=== PATIENT | female | born 1945 | race Caucasian/White ===

== ENCOUNTER → 2018-02-21 07:46 | Outpatient (BNVA) | payer MEDICARE, OTHER, SELFPAY | PROVIDERS: PCP Family Medicine; Referring Provider Family Medicine; Visit Provider Student in an Organized Health Care Education/Training Program | DX: Z47.1 Aftercare following joint replacement surgery (principal); Z96.651 Presence of right artificial knee joint | CPT/HCPCS: 99213 ==

== ENCOUNTER 2018-02-21 12:44 | Outpatient (CLI) | payer MEDICARE, OTHER, SELFPAY ==
--- NOTE | 2018-02-21 08:11 | DI.RAD_ITS ---
SYMPTOM/DIAGNOSIS: S/P RT ANDRE RIGHT HIP: Three views were obtained and show total hip joint replacement in position on the right. The components appear well seated. There are moderate degenerative changes of the left hip noted.
== END 2018-02-21 13:04 ==
PROVIDERS: PCP Family Medicine; Visit Provider Student in an Organized Health Care Education/Training Program
DX: Z96.641 Presence of right artificial hip joint (principal); Z47.1 Aftercare following joint replacement surgery
CPT/HCPCS: 99213; 73502

== ENCOUNTER 2018-05-28 11:47 | Outpatient (CLI) | payer MEDICARE, OTHER, SELFPAY ==
[2018-05-28 14:03] LABS: FREE T4 1.12 ng/dL (0.76-1.46); TSH 1.74 uIU/mL (0.358-3.74)
[2018-05-28 22:34] LABS: T3, Total 119 ng/dl (97-169)
== END 2018-05-28 12:07 ==
PROVIDERS: PCP Family Medicine; Visit Provider Family Medicine
DX: R53.83 Other fatigue (principal); R03.0 Elevated blood-pressure reading, without diagnosis of hypertension; F32.89 Other specified depressive episodes
CPT/HCPCS: 36415; 84439; 84443; 84480

== ENCOUNTER 2018-08-16 10:43 | Outpatient (CLI) | payer MEDICARE, OTHER, SELFPAY ==
[2018-08-16 12:45] LABS: Abs Immature Grans 0.02 k/cumm (0.0-0.09); Absolute Basophil Count 0.03 k/cumm (0.0-0.2); Absolute Eosinophil Count 0.18 k/cumm (0.0-0.7); Absolute Lymphocyte Count 1.73 k/cumm (1.2-3.4); Absolute Monocyte Count 0.59 k/cumm (0.11-0.7); Absolute Neutrophil Count 3.92 k/cumm (1.2-6.7); Basophils % 0.5; Eosinophils % 2.8; HCT 42.8 % (36.0-46.0); HGB 14.5 g/dL (12.0-15.5); Immature Grans % 0.3; Lymphocytes % 26.7; Mean Corp. HGB Concentration 33.9 g/dL (32.0-36.0); Mean Corpuscular Hemoglobin 31.4 pg (27.0-33.0); Mean Corpuscular Volume 92.6 fL (80-95); Mean Platelet Volume 10.1 fL (8.0-11.0); Monocytes % 9.1; Neutrophils % 60.6; Platelet Count 247 x1000/uL (130-400); RBC 4.62 m/cumm (4.00-5.20); RBC Distribution Width 12.7 % (11.7-14.6); White Blood Cell Count 6.47 k/cumm (4.4-10.8)
[2018-08-16 13:06] LABS: Iron 93 ug/dL (50-175); Total Iron Binding Capacity 333 ug/dL (250-450); Transferrin Sat 28 % (15-50)
[2018-08-16 13:40] LABS: ALT 28 U/L (12-78); AST 20 U/L (15-37); Albumin 3.9 g/dL (3.4-5.0); Alkaline Phosphatase 101 U/L (46-116); Anion Gap 11.3 mmol/L (3-11); BUN 21 mg/dL (7-18); Bilirubin, Total 0.8 mg/dL (0.2-1.0); CO2 26.7 mmol/L (21.0-32.0); CREATININE 0.83 mg/dL (0.55-1.02); Calcium 9.9 mg/dL (8.5-10.1); Chloride 105 mmol/L (98-107); Ferritin 79 ng/mL (8-388); Glucose 92 mg/dL (70-100); Potassium 4.1 mmol/L (3.5-5.1); Sodium 143 mmol/L (136-145); Total Protein 7.4 g/dL (6.4-8.2); Vitamin B12 620 pg/mL (193-986)
[2018-08-16 14:13] LABS: Amylase 98 U/L (25-115); Lipase 102 U/L (73-393)
== END 2018-08-16 11:03 ==
PROVIDERS: PCP Family Medicine; Visit Provider Family Medicine
DX: R07.9 Chest pain, unspecified (principal); D64.9 Anemia, unspecified; R10.9 Unspecified abdominal pain
CPT/HCPCS: 36415; 80053; 83690; 82150; 82607; 82728; 83540; 83550; 85025

== ENCOUNTER → 2018-09-07 09:13 | Outpatient (BNVA) | payer MEDICARE, OTHER, SELFPAY | PROVIDERS: PCP Family Medicine; Referring Provider Family Medicine; Visit Provider Student in an Organized Health Care Education/Training Program | DX: M65.312 Trigger thumb, left thumb (principal); M65.331 Trigger finger, right middle finger | CPT/HCPCS: 99212; 99213 ==

== ENCOUNTER 2018-09-11 11:47 | Day surgery (SDC) | payer MEDICARE, OTHER, SELFPAY ==
[2018-09-11 12:15] VITALS: BP 142/70; PULSE 71; RESP 16; TEMP 36.2; O2SAT 97
[2018-09-11] MEDS: Lidocaine 1% Pres-Free 5 ML VIAL (14:14)
[2018-09-11] MEDS: Sodium Bicarbonate 50 MEQ/50 ML VIAL (14:14)
[2018-09-11] MEDS: Bupivacaine 0.5% Pres-Free 30 ML VIAL (14:20)
--- NOTE | 2018-09-11 14:27 | W.PM.DSUDISC ---
Discharge Plan Disposition Patient Disposition: HOME Condition: Good Discharge Details Reason For Visit: TRIGGER FINGER Attending Provider: Jack Morales Primary Care Provider: Harmony Gallardo Home Meds and New Rx's Prescriptions: New acetaminophen 500 mg tablet 1,000 mg PO Q8H PRN (Reason: pain) Qty: 60 RF: 3 ibuprofen 600 mg tablet 600 mg PO TID PRNQty: 60 RF: 3 Continued mirtazapine 15 mg tablet 7.5 mg PO DAILY PRN (Reason: depression/insomnia) RF: 0 omeprazole 20 mg capsule,delayed release(DR/EC) 20 mg PO DAILY Qty: 30 RF: 3 Discharge Instructions Stand Alone Forms: Andrew Brewer Finger Release Referrals: Jack Morales MD [ [facility] STAFF PHYSICIAN] - Activity:: Elevate Remove Dressings/Wound Care:: 48 hours Shower/Bathe:: 48 hours Diet:: As Tolerated Discharge Orders Discharge Orders: Discharge Order (Routine); Ordered 09/11/18 Ordered By: Jack Morales DS: Diagnosis Discharge Diagnosis (1) Trigger thumb, left thumb: Status: Acute (2) Trigger finger, left middle finger: Status: Acute
--- NOTE | 2018-09-12 08:09 | ROE_ITS ---
Date of service: 09/11/18 Time of Service: 15:06 Operative Note DATE OF PROCEDURE: 09/11/18 PRE-OP DIAGNOSIS: Trigger Finger -left middle finger and left thumb POST-OP DIAGNOSIS: same PROCEDURE: Trigger Finger Release -left middle finger and left thumb SURGEON: Jack Morales ANESTHESIA: local PATHOLOGY: none sent COMPLICATIONS: None Patient was transported to: same day Patient's condition: stable Indications: I have seen Klaudia in clinic for symptoms of a trigger finger. The catching, clicking, locking, and pain limited function. The diagnosis of trigger finger was evident. The thumb was more acute in the middle finger has been long-standing for some time. The symptoms had not responded to conservative measures. I discussed trigger finger release with the patient. She had previously had injections of the left middle finger which did work initially I reviewed the risks of the procedure to include, but not limited to, bleeding, infection, pain, stiffness, incomplete release, damage to nerves or ve ssels, continued catching, recurrence. Despite these risks, the patient elected to proceed. Findings: There was a tightened A1 cooper which was released. The flexor tendons were inspected and the patient was able to move the finger without any catching, clicking, or locking. The middle finger had significant synovitis around the flexor tendon. Procedure Description: Klaudia was greeted in the preoperative holding area where the correct side was identified and marked. The consent was reviewed with the patient and signed. All questions were answered. Klaudia was taken back to the operating room. The patient was placed into the supine position on the operating room table with the left arm on an arm board. All bony prominences were well padded. No prophylactic antibiotics were administered since this was a clean, elective hand surgical case. The left arm was then prepped with Chloraprep and draped in a standard fashion with stockinette and extremity drape. A timeout to confirm correct identity, side and site, procedure, allergies, anesthesia, and medical concerns was performed. The surgical site was marked as a longitudinal incision directly over the A1 cooper of the thumb and middle finger. This was confirmed with palpation during finger flexion. This area, overlying the metacarpal head, was then anesthetized with 1% Lidocaine. The patient tolerated this well and once the anesthetic had setup, the procedure began. A longitudinal incision was made through skin only, approximately 1cm, starting with the thumb. The deep tissues were dissected bluntly. Once the A1 cooper and flexor tendon was identified the soft tissue including neurovascular structures were retracted medially and laterally. There were no crossing structures over the A1 cooper. The proximal edge of the cooper was identified and the cooper was incised with tenotomy scissors. There was a release of the tendons once this was fully released. The tendons were then removed from the wound and inspected. Excess synovium was resected. The tendons were then returned and the patient was asked to move the finger into deep flexion and back to extension. There was no recreation of the pre- operative symptoms. The hand was then once more inspected for any A0 cooper or area of possible constriction. The wound was then irrigated and the skin was closed with a 4-0 Nylon. Attention was then turned to the middle finger. The skin was incised sharply in a longitudinal fashion overlying the A1 cooper. The deep tissues were dissected bluntly. Once the A1 cooper and flexor tendons were identified the soft tissue including neurovascular structures were retracted medially and laterally. There were no crossing structures over the A1 cooper. The proximal edge of the cooper was identified and the cooper was incised with tenotomy scissors. There was a release of the tendons once this was fully released. The tendons were then removed from the wound and inspected. Excess synovium was resected. The tendons were then returned and the patient was asked to move the finger into de ep flexion and back to extension. There was no recreation of the pre-operative symptoms. The hand was then once more inspected for any A0 cooper or area of possible constriction. The wound was then irrigated and the skin was closed with a 4-0 Nylon. This was dressed with gauze and a Conform dressing. The patient tolerated the procedure well and was returned to the Same Day Surgery area in a stable condition suffering no known complication.
== END 2018-09-11 14:46 | disposition home or self-care (01) ==
PROVIDERS: PCP Family Medicine; Visit Provider Student in an Organized Health Care Education/Training Program
PROC: (CPT 26055; principal; 2018-09-11 13:45)
DX: M65.332 Trigger finger, left middle finger (principal); M65.312 Trigger thumb, left thumb
CPT/HCPCS: 26055

== ENCOUNTER → 2018-09-19 14:09 | Outpatient (BNVA) | payer MEDICARE, OTHER, SELFPAY | PROVIDERS: PCP Family Medicine; Referring Provider Family Medicine; Visit Provider Student in an Organized Health Care Education/Training Program | DX: Z47.89 Encounter for other orthopedic aftercare (principal); M65.332 Trigger finger, left middle finger; M65.312 Trigger thumb, left thumb ==

== ENCOUNTER 2018-12-04 00:47 | Outpatient (CLI) | payer MEDICARE, OTHER, SELFPAY ==
--- NOTE | 2018-12-04 15:30 | DI.DEXA_ITS ---
SYMPTOM/DIAGNOSIS: SCREENING FOR OSTEOPOROSIS IN POSTMENOPAUSAL WOMAN, Z78.0 DEXA SCAN: The scanogram is unremarkable. For the left hip, a T score of -0.6 and a Z score of 1.0 are consistent with osteopenia and an increased fracture risk. For the lumbar spine, a T score of - 1.4 and a Z score of 0.9 are also consistent with osteopenia and an increased fracture risk. For the left forearm, a T score of -2.5 and a Z score of -0.3 are consistent with osteopenia and an increased fracture risk.
== END 2018-12-04 01:07 ==
PROVIDERS: PCP Family Medicine; Visit Provider Family Medicine
DX: Z78.0 Asymptomatic menopausal state (principal); M85.88 Other specified disorders of bone density and structure, other site
CPT/HCPCS: 77080

== ENCOUNTER → 2019-02-14 10:25 | Outpatient (BNVA) | payer MEDICARE, OTHER, SELFPAY | PROVIDERS: PCP Family Medicine; Referring Provider Family Medicine; Visit Provider Student in an Organized Health Care Education/Training Program | DX: M65.311 Trigger thumb, right thumb (principal); M65.331 Trigger finger, right middle finger | CPT/HCPCS: 99214 ==

== ENCOUNTER 2019-02-27 06:16 | Day surgery (SDC) | payer MEDICARE, SELFPAY ==
[2019-02-27 06:35] VITALS: BP 153/65; PULSE 66; RESP 18; TEMP 36.8; O2SAT 95
--- NOTE | 2019-02-27 07:23 | W.PM.DSUDISC ---
Discharge Plan Disposition Patient Disposition: HOME Discharge Details Reason For Visit: TRIGGER FINGER Attending Provider: Jack Morales Primary Care Provider: Harmony Gallardo Home Meds and New Rx's Prescriptions: New acetaminophen 500 mg tablet 1,000 mg PO Q8H PRN (Reason: pain) Qty: 60 RF: 0 ibuprofen 600 mg tablet 600 mg PO TID PRN (Reason: pain) Qty: 60 RF: 0 Continued omeprazole 20 mg capsule,delayed release(DR/EC) 20 mg PO DAILY Qty: 30 RF: 6 Discharge Instructions Stand Alone Forms: Andrew Brewer Finger Release Activity:: Elevate Remove Dressings/Wound Care:: 48 hours Shower/Bathe:: 48 hours Diet:: As Tolerated Discharge Orders Discharge Orders: Discharge Order (Routine); Ordered 02/27/19 Ordered By: Светлана Carmona DS: Diagnosis Discharge Diagnosis (1) Trigger finger of right thumb: Status: Acute (2) Trigger finger, right middle finger: Status: Acute
[2019-02-27] MEDS: Sodium Bicarbonate 50 MEQ/50 ML VIAL (07:33)
--- NOTE | 2019-02-27 15:03 | ROE_ITS ---
Date of service: 02/27/19 Time of Service: 08:03 Operative Note Operative Note DATE OF PROCEDURE: 02/27/19 PRE-OP DIAGNOSIS: Right middle finger and right thumb trigger finger POST-OP DIAGNOSIS: same PROCEDURE: Trigger Finger Release -right middle and right thumb SURGEON: Jack Morales ANESTHESIA: local ESTIMATED BLOOD LOSS: 5 PATHOLOGY: none sent COMPLICATIONS: None Patient was transported to: same day Patient's condition: stable Indications: I have seen Klaudia in clinic for symptoms of a trigger finger. The catching, clicking, locking, and pain limited function. The diagnosis of trigger finger was evident. The symptoms had not responded to conservative measures. She has had previous trigger finger releases with excellent results. I discussed trigger finger release with the patient. I reviewed the risks of the procedure to include, but not limited to, bleeding, infection, pain, stiffness, incomplete release, damage to nerves or vessels, continued catching, recurrence. Despite these risks, the patient elected to proceed. Findings: There was a tightened A1 cooper which was released in the middle finger and the thumb. The flexor tendons were inspected and the patient was able to move the finger without any catching, clicking, or locking. Procedure Description: Klaudia was greeted in the preoperative holding area where the correct side was identified and marked. The consent was reviewed with the patient and signed. All questions were answered. Klaudia was taken back to the operating room. The patient was placed into the supine position on the operating room table with the right arm on an arm board. All bony prominences were well padded. No prophylactic antibiotics were administered since this was a clean, elective hand surgical case. The right arm was then prepped with Chloraprep and draped in a standard fashion with sto ckinette and extremity drape. A timeout to confirm correct identity, side and site, procedure, allergies, anesthesia, and medical concerns was performed. The surgical site was marked as a longitudinal incision directly over the A1 cooper of the middle finger and thumb. This was confirmed with palpation during finger flexion. This area, overlying the metacarpal head, was then anesthetized with 1% Lidocaine with epinephrine and buffered with sodium bicarbonate. The patient tolerated this well and once the anesthetic had setup, the procedure began. Starting with the middle finger, A longitudinal incision was made through skin only, approximately 1cm. The deep tissues were dissected bluntly. Once the A1 cooper and flexor tendons were identified the soft tissue including neurovascular structures were retracted medially and laterally. There were no crossing structures over the A1 cooper. The proximal edge of the cooper was identified and the cooper was incised with tenotomy scissors. There was a release of the tendons once this was fully released. The tendons were then removed from the wound and inspected. Excess synovium was resected. The tendons were then returned and the patient was asked to move the finger into deep flexion and back to extension. There was no recreation of the pre- operative symptoms. The hand was then once more inspected for any A0 cooper or area of possible constriction. The wound was then irrigated and the skin was closed with a 4-0 Nylon. The thumb was addressed next. A longitudinal incision was made through skin only, approximately 1cm. The deep tissues were dissected bluntly. Once the A1 cooper and flexor tendons were identified the soft tissue including neurovascular structures were retracted medially and laterally. There were no crossing structures over the A1 cooper. The proximal edge of the cooper was identified and the cooper was incised with tenotomy scissors. There was a release of the tendons once this was fully released. The tendons were then removed from the wound and inspected. Excess synovium was resected. The tendons were then returned and the patient was asked to move the finger into deep flexion and back to extension. There was no recreation of the pre- operative symptoms. The hand was then once more inspected for any area of possible constriction. The wound was then irrigated and the skin was closed with a 4-0 Nylon. This was dressed with gauze and a Conform dressing. The patient tolerated the procedure well and was returned to the Same Day Surgery area in a stable condition suffering no known complication.
== END 2019-02-27 08:30 | disposition home or self-care (01) ==
PROVIDERS: PCP Family Medicine; Visit Provider Student in an Organized Health Care Education/Training Program
PROC: (CPT 26055; principal; 2019-02-27 07:30)
DX: M65.331 Trigger finger, right middle finger (principal); M65.311 Trigger thumb, right thumb
CPT/HCPCS: 26055

== ENCOUNTER → 2019-03-08 10:35 | Outpatient (BNVA) | payer MEDICARE, SELFPAY | PROVIDERS: PCP Family Medicine; Referring Provider Family Medicine; Visit Provider Student in an Organized Health Care Education/Training Program | DX: Z47.89 Encounter for other orthopedic aftercare (principal); M65.331 Trigger finger, right middle finger; M65.311 Trigger thumb, right thumb ==

== ENCOUNTER 2019-05-20 07:00 | Outpatient (CLI) | payer MEDICARE, SELFPAY ==
[2019-05-20 13:10] LABS: Absolute Basophil Count 0.03 k/cumm (0.0-0.2); Absolute Lymphocyte Count 1.64 k/cumm (1.2-3.4); Absolute Monocyte Count 0.65 k/cumm (0.11-0.7); Absolute Neutrophil Count 3.14 k/cumm (1.2-6.7); Basophils % 0.5; Eosinophils % 1.8; HGB 13.4 g/dL (12.0-15.5); Lymphocytes % 29.5; Mean Corp. HGB Concentration 33.5 g/dL (32.0-36.0); Mean Corpuscular Hemoglobin 31.3 pg (27.0-33.0); Mean Corpuscular Volume 93.5 fL (80-95); Mean Platelet Volume 9.8 fL (8.0-11.0); Monocytes % 11.7; Neutrophils % 56.5; Platelet Count 288 x1000/uL (130-400); RBC 4.28 m/cumm (4.00-5.20); RBC Distribution Width 12.2 % (11.7-14.6); White Blood Cell Count 5.56 k/cumm (4.4-10.8)
[2019-05-20 13:28] LABS: ALT 22 U/L (14-59); AST 20 U/L (15-37); Alkaline Phosphatase 87 U/L (46-116); BUN 18 mg/dL (7-18); C-Reactive Protein 0.14 mg/dL (0.0-0.3); Calcium 9.7 mg/dL (8.5-10.1); Chloride 106 mmol/L (98-107); Glucose 93 mg/dL (74-106); Potassium 4.1 mmol/L (3.5-5.1); Sodium 144 mmol/L (136-145); TSH 1.96 uIU/mL (0.36-3.74); Total Protein 7.2 g/dL (6.4-8.2)
== END 2019-05-20 07:20 ==
PROVIDERS: PCP Family Medicine; Visit Provider Family Medicine
DX: R07.89 Other chest pain (principal); R53.83 Other fatigue; F32.9 Major depressive disorder, single episode, unspecified
CPT/HCPCS: 36415; 80053; 84443; 85025; 86140

== ENCOUNTER 2019-05-20 12:00 | Outpatient (CLI) | payer MEDICARE, SELFPAY ==
--- NOTE | 2019-05-20 12:18 | DI.RAD_ITS ---
EXAM: XR CHEST 2V PA LATERAL INDICATION: productive cough/left chest pain/non smoke, R05. COMPARISON: No exams were available for comparison TECHNIQUE: 2D digital imaging was performed. FINDINGS: The heart size is normal. The lungs are well inflated and clear. No infiltrate or effusion is seen. There is no visible bronchial thickening. IMPRESSION: No acute abnormality.
== END 2019-05-20 12:20 ==
PROVIDERS: PCP Family Medicine; Visit Provider Family Medicine
DX: R05 Cough (principal); R07.89 Other chest pain; R53.83 Other fatigue; F32.9 Major depressive disorder, single episode, unspecified
CPT/HCPCS: 36415; 80053; 71046; 84443; 85025; 86140

== ENCOUNTER 2019-11-05 13:33 | Outpatient (REF) | payer MEDICARE, SELFPAY | END 2019-11-05 13:53 | LOC: LBN 13:33 | PROVIDERS: PCP Family Medicine; Visit Provider Family Medicine | DX: N39.0 Urinary tract infection, site not specified (principal) | CPT/HCPCS: 87086 ==

== ENCOUNTER 2019-11-15 07:56 | Day surgery (SDC) | payer MEDICARE, SELFPAY ==
[2019-11-15 08:19] VITALS: BP 150/70; PULSE 55; RESP 16; TEMP 36.4; O2SAT 99
[2019-11-15] MEDS: Tetracaine 0.5% 4 ML BTL OD (08:46)
[2019-11-15] MEDS: Povidone-Iodine Ophth 30 ML BTL (08:47)
[2019-11-15] MEDS: Lidocaine 2% Jelly 6 ML SYR (08:47)
[2019-11-15] MEDS: Lidocaine 1% Pres-Free 5 ML VIAL (08:56)
[2019-11-15] MEDS: Balanced Salt Soln.-PLUS 500 ML BAG (09:00)
[2019-11-15] MEDS: Moxifloxacin-PF 1 MG/ML VIAL (09:15)
--- NOTE | 2019-11-15 09:17 | W.PM.DSUDISC ---
Discharge Plan Disposition Patient Disposition: HOME Condition: Good Discharge Details Attending Provider: Khoi Nichols Primary Care Provider: Harmony Gallardo Home Meds and New Rx's Prescriptions: No Action omeprazole 20 mg capsule,delayed release(DR/EC) 20 mg PO DAILY Qty: 30 RF: 6 acetaminophen 500 mg tablet 1,000 mg PO Q8H PRN (Reason: pain) Qty: 60 RF: 0 Discharge Instructions Stand Alone Forms: Post-op Topical Cataract, Samuel Hobson (DSU) DS: Diagnosis Discharge Diagnosis (1) Cortical cataract of right eye: Status: Resolved (2) Nuclear sclerotic cataract of right eye: Status: Resolved
--- NOTE | 2019-11-15 09:20 | W.PM.OP ---
Date of service: 11/15/19 Time of Service: 09:21 Operative Note Operative Note DATE OF PROCEDURE: 11/15/19 PRE-OP DIAGNOSIS: Nuclear/cortical cataract, right eye POST-OP DIAGNOSIS: same PROCEDURE: Cataract extraction using phacoemulsification with intraocular lens implant, right eye SURGEON: Khoi Nichols ANESTHESIA: MAC and local (sub-tenon's anesthetic infiltration) ESTIMATED BLOOD LOSS: 0 PATHOLOGY: none sent COMPLICATIONS: None Patient was transported to: same day Patient's condition: stable Implants: [employer] / [employer] Tecnis [id number] intraocular lens Indications: Progressive decreased vision due to cataract, right eye Procedure Description: CATARACT SURGERY OPERATIVE REPORT PREOPERATIVE DIAGNOSIS: Nuclear/cortical cataract, right eye POSTOPERATIVE DIAGNOSIS: Same OPERATION: Cataract extraction using phacoemulsification with posterior chamber intraocular lens implant, right eye. IOL: IOL Storage Battery Inspector And Tester/Model: [employer] Vision / AARON Tecnis ZCB00 IOL Power: + 23.0 diopters IOL Serial Number: [id number] Optic Diameter: 6.0mm Haptic/Overall Diameter: 13.0mm PHACO INFO: Gerald Movigourion Vision System with OZil and Active Fluidics Cumulative Dispersed Energy (CDE): 12.17 seconds SURGEON: Khoi Nichols MD, TIARA ANESTHESIA: Monitored Anesthesia Care (MAC), with local sub-tenon's anesthetic infiltration COMPLICATIONS: None SPECIMENS: None INDICATIONS FOR PROCEDURE: The patient is a 74-year-old lady with history of diminished visual acuity in her right eye secondary to the development of nuclear and cortical cataract. She has already undergone cataract surgery in her left eye and is doing well postoperatively. She now presents for cataract surgery in the right eye. PROCEDURE: The correct surgical eye was identified and marked as the right eye and the pupil was dilated in the preoperative area using mydriatics and cycloplegics. The dilated pupil size was 6.0 mm. Oral sedation was administered in the form of an Imprimis MKO Melt (midazolam 3mg/ketamine 25mg/ondansetron 2mg). The patient was brought to the operating room where cardiopulmonary monitoring was instituted and surgical time-out was performed, confirming the correct operative eye and IOL power. Topical anesthesia was administered and ophthalmic povidone-iodine 5% was instilled into the conjunctival fornices. Lidocaine gel was applied to the cornea and the indira-ocular area was prepped with Betadine 10% solution and draped in the usual sterile fashion for intraocular surgery, including an aperture drape. A Tegaderm transparent film dressing was cut in half and used to cover the lashes and lid margins. Care was taken to sequester the lashes and lid margins under the Tegaderm dressing. A lid speculum was placed between the lids of the operative eye and the Kimberley-Jonny operating microscope was maneuvered into position. Amish scissors were then used to make a conjunctival buttonhole approximately 6mm posterior to the limbus in the inferonasal quadrant. Blunt dissection was carried out to expose bare sclera, and a blunt-tipped sub-tenon?s anesthesia cannula was introduced and passed posteriorly along the globe where non-preserved plain lidocaine was injected into posterior sub-Tenon?s space. A sideport knife was used to make a paracentesis port inferiortemporally. Intraocular phenylephrine/lidocaine was injected into the anterior chamber. The anterior chamber was then filled with Healon Pro. A 2.4mm keratome knife was used to create a half-thickness groove at the limbus and then to construct a three-plane near-clear corneal tunnel extending 2.0mm into clear cornea in the superiortemporal position. . A flap was raised on the anterior capsule and capsulorhexis forceps were used to complete a continuous curvilinear capsulorhexis of 5.0 mm. Balanced salt solution was then used to perform cortical cleaving hydrodissection and nuclear hydrodelineation until the lens could be freely rotated within the capsular bag. The lens nucleus was then disassembled and removed within the capsular bag and iris plane using phacoemulsification. Residual cortical material was removed using the I/A handpiece. The posterior capsule was carefully polished to remove as much residual lens epithelial cells as safely possible. The capsular bag was then inflated and the anterior chamber deepened with viscoelastic. The lens implant described above was inserted into the capsular bag using the AARON [place] Injector. A Kuglen hook was used to dial the IOL into position. Residual viscoelastic was then removed first from posterior to the IOL, then from the anterior chamber using the I/A handpiece. The lens implant was noted to center nicely within the capsular bag. The incisions were stromally hydrated, and the anterior chamber was reformed using BSS. Then 0.5cc of moxifloxacin 1.0mg/ml were injected into the capsular bag and anterior chamber. The incisions were checked with a Weck spear and found to be secure. Several drops of ophthalmic povidone-iodine 5% were then applied to the eye followed by two drops of Imprimis combination prednisolone/moxifloxacin/nepafenac solution. The drapes were removed and a clear plastic protective eye shield was placed over the eye. The patient was then returned to Same Day Surgery in stable condition.
[2019-11-15 09:43] VITALS: BP 139/69; PULSE 65; RESP 18; TEMP 36.5; O2SAT 97
== END 2019-11-15 10:00 | disposition home or self-care (01) ==
PROVIDERS: PCP Family Medicine; Visit Provider Ophthalmology
PROC: (CPT 66984; principal; 2019-11-15 08:45)
DX: H25.011 Cortical age-related cataract, right eye (principal); H25.11 Age-related nuclear cataract, right eye; Z98.42 Cataract extraction status, left eye; Z96.1 Presence of intraocular lens; K21.9 Gastro-esophageal reflux disease without esophagitis; G47.33 Obstructive sleep apnea (adult) (pediatric)
CPT/HCPCS: 66984; V2632

== ENCOUNTER 2020-01-27 15:56 | Outpatient (CLI) | payer MEDICARE, SELFPAY ==
--- NOTE | 2020-01-27 15:30 | DI.RAD_ITS ---
EXAM: XR HIP RT AP LAT ONLY CLINICAL HISTORY: h/o r ANDRE TECHNIQUE: COMPARISON: CR Hip R Complete from 02/21/2018 FINDINGS: Two views were obtained. There is a total right hip joint replacement in position. The components a ppear well seated. No other significant bony abnormality seen. IMPRESSION: RADIATION DOSE DELIVERED: Total DLP
== END 2020-01-27 16:16 ==
PROVIDERS: PCP Family Medicine; Referring Provider Family Medicine; Visit Provider Student in an Organized Health Care Education/Training Program
DX: Z96.641 Presence of right artificial hip joint (principal); M16.11 Unilateral primary osteoarthritis, right hip; W19.XXXA Unspecified fall, initial encounter
CPT/HCPCS: 99213; 73502

== ENCOUNTER 2020-06-09 11:31 | Outpatient (CLI) | payer MEDICARE, SELFPAY ==
--- NOTE | 2020-06-09 10:15 | DI.RAD_ITS ---
EXAM: XR SACROILIAC JOINTS CLINICAL HISTORY: new injury. TECHNIQUE: 2D digital imaging was performed. COMPARISON: No exams were available for comparison FINDINGS: BONES: No acute fracture is present. No bony destructive lesion is seen. JOINTS: No dislocation present. Mild degenerative changes are seen at the sacroiliac joints. No anky losis is present no erosions are seen. The patient has a prior right total hip replacement which is incompletely imaged. SOFT TISSUE: Normal. IMPRESSION: No acute abnormality. Mild degenerative changes of the sacroiliac joints. DATA REPOSITORY: RADIATION DOSE DELIVERED:
--- NOTE | 2020-06-09 10:15 | DI.RAD_ITS ---
EXAM: XR HIP RT COMPLETE AP PELVIS CLINICAL HISTORY: new injury. TECHNIQUE: 2D digital imaging was performed. COMPARISON: No exams were available for comparison FINDINGS: BONES: There are stable post operative changes present. No acute fracture or dislocation. JOINTS: Mild degenerative changes are seen in the left hip. No joint effusion is present. SOFT TISSUE: Atherosclerosis. IMPRESSION: Stable postoperative changes. No acute fracture or dislocation. DATA REPOSITORY: RADIATION DOSE DELIVERED:
== END 2020-06-09 11:51 ==
PROVIDERS: PCP Family Medicine; Visit Provider Physician Assistant
DX: Z96.641 Presence of right artificial hip joint (principal); M79.604 Pain in right leg; W18.49XA Other slipping, tripping and stumbling without falling, initial encounter
CPT/HCPCS: 99214; 99215; 72202; 73502

== ENCOUNTER 2020-06-10 14:52 | Outpatient (REF) | payer MEDICARE, SELFPAY ==
[2020-06-10 13:33] LABS: TSH (W/Ref FT4) 1.65 uIU/mL (0.36-3.74)
[2020-06-11 10:21] LABS: Hepatitis C Ab w Rflx HCV PCR Negative (Negative)
== END 2020-06-10 15:12 ==
LOC: LBN 14:52
PROVIDERS: PCP Family Medicine; Visit Provider Family Medicine
DX: E03.9 Hypothyroidism, unspecified (principal); Z11.59 Encounter for screening for other viral diseases
CPT/HCPCS: 86803; 84443

== ENCOUNTER → 2020-07-20 10:07 | Outpatient (BNVA) | payer MEDICARE, SELFPAY | PROVIDERS: PCP Family Medicine; Visit Provider Student in an Organized Health Care Education/Training Program | DX: M79.604 Pain in right leg (principal); Z96.641 Presence of right artificial hip joint | CPT/HCPCS: 99213 ==

== ENCOUNTER 2020-09-26 12:24 | Outpatient (CLI) | payer MEDICARE, SELFPAY ==
--- NOTE | 2020-09-26 12:45 | DI.RAD_ITS ---
EXAM: XR FOOT RT COMPLETE CLINICAL HISTORY: right foot pain, 1st metatarsal. TECHNIQUE: 2D digital imaging was performed. COMPARISON: No exams were available for comparison FINDINGS: There is a 4 x 3 millimeter ossified density off the lateral aspect of the proximal phalanx of the gr eat toe which may represent a fracture, age indeterminate. There are degenerative changes also noted in the metatarsophalangeal joint at this level. No other fracture sites identified. Lisfranc joint is not diastatic. Bipartite medial sesamoid is noted subjacent to the great toe metatarsal head. T here is a large inferior calcaneal spur noted. No radiopaque foreign body noted. No evidence of ost eomyelitis. IMPRESSION: DATA REPOSITORY: RADIATION DOSE DELIVERED:
--- NOTE | 2020-09-26 12:45 | DI.RAD_ITS ---
EXAM: XR CHEST 2V PA LATERAL CLINICAL HISTORY: fever, chills, malaise. R/o pneumonia. TECHNIQUE: 2D digital imaging was performed. COMPARISON: CR CHEST 2 VIEWS PA,LAT from 09/26/2016 CR XR CHEST 2V PA LATERAL from 05/20/2019 FINDINGS: Heart size is normal. The mediastinum is not widened. Left lung is clear. Subtle suggestion of a small 3 millimeter noncalcified nodule in the lateral asp ect of the right upper lobe, not evident on the prior study.. Possibly was present on the September 2016 study. Recommend follow-up outpatient noninfused CT scan. IMPRESSION: No acute pulmonary findings. DATA REPOSITORY: RADIATION DOSE DELIVERED:
--- NOTE | 2020-09-26 14:48 | DI.VRAD_ITS ---
PROCEDURE INFORMATION: Exam: XR Chest Exam date and time: 09/26/2020 2:04 PM Age: 75 years old Clinical indication: Cough TECHNIQUE: Imaging protocol: XR of the chest. Views: 2 views. COMPARISON: CR XR CHEST 2V PA LATERAL 05/20/2019 12:15 PM FINDINGS: Lungs: There is a 5 mm nodular density projecting between the periphery of the right posterior 5th and 6th ribs which could represent a lung nodule but may represent superimposition of normal structures. The lungs are otherwise free of infiltrate or consolidation. Pleural spaces: Unremarkable. No pleural effusion. No pneumothorax. Heart/Mediastinum: Unremarkable. No cardiomegaly. Bones/joints: Thoracic vertebral osteophytes and degenerative changes both shoulders. IMPRESSION: 1. No acute findings. 2. Possible 5 mm nodule periphery of right upper lobe versus overlapping structures. Consider short-term follow-up or non emergent CT chest. Dictated and Authenticated by: Roni Hightower MD. Ordering:REG Coombs MD
[2020-09-26 14:50] LABS: Abs Immature Grans 0.04 10^3/uL (0.0-0.06); Absolute Basophil Count 0.04 10^3/uL (0.0-0.2); Absolute Eosinophil Count 0.13 10^3/uL (0.0-0.7); Absolute Lymphocyte Count 1.22 10^3/uL (1.2-3.4); Absolute Monocyte Count 0.86 10^3/uL (0.1-0.8); Basophils % 0.4; Eosinophils % 1.2; HCT 43.1 % (36.0-46.0); HGB 14.3 g/dL (11.2-15.7); Immature Grans % 0.4; Lymphocytes % 11.2; MCH 31.5 pg (27.0-33.0); MCHC 33.2 % (32.0-36.0); MCV 94.9 fL (80-95); MPV 9.7 fL (8.0-11.0); Monocytes % 7.9; Neutrophils % 78.9; Nucleated RBC 0 %; Platelet Count 365 10^3/uL (130-400); RBC 4.54 10^6/uL (3.93-5.22); RDW 11.8 % (11.7-14.6); RDW-SD 41.2 fL; WBC 10.91 10^3/uL (4.4-10.8)
[2020-09-26 14:52] LABS: Absolute Neutrophil Count 8.61 10^3/uL (1.2-6.7)
--- NOTE | 2020-09-26 14:54 | DI.VRAD_ITS ---
PROCEDURE INFORMATION: Exam: XR Right Foot Exam date and time: 09/26/2020 2:07 PM Age: 75 years old Clinical indication: Pain; Foot; Right TECHNIQUE: Imaging protocol: XR Right foot. Views: 3 or more views. COMPARISON: No relevant prior studies available. FINDINGS: Bones/joints: There is mild hallux valgus. Asymmetrical narrowing MTP joint great toe greater medially than laterally. Well demarcated erosion lateral base of great toe proximal phalanx with fragmentation of the lateral corner which could represent a fracture of indeterminate age. Large inferior calcaneal spur. Soft tissues: Minimal peripheral calcifications at the medial great toe metatarsal head. Vasculature: Small vessel calcifications. IMPRESSION: 1. Arthritic changes great toe including some erosions and soft tissue calcifications raising the possibility of gout. 2. Medial corner fragmentation base of proximal phalanx great toe could represent fracture of indeterminate age. 3. Large inferior calcaneal spur. Dictated and Authenticated by: Roni Hightower MD. Ordering:REG Coombs MD
[2020-09-26 14:59] LABS: ALT 25 U/L (14-59); AST 16 U/L (15-37); Albumin 3.9 g/dL (3.4-5.0); Alkaline Phosphatase 137 U/L (46-116); Anion Gap 6.2 mmol/L (3-11); BUN 16 mg/dL (7-18); CO2 28.8 mmol/L (21.0-32.0); Calcium 9.5 mg/dL (8.5-10.1); Chloride 104 mmol/L (98-107); Glucose 96 mg/dL (74-106); Potassium 4.2 mmol/L (3.5-5.1); Sodium 139 mmol/L (136-145); Total Protein 7.8 g/dL (6.4-8.2)
[2020-09-27 01:15] LABS: COVID-19 RT-PCR UVMMC Result Negative (Negative)
[2020-09-28 10:04] LABS: Lyme Ab w Rflx to Lyme Confirm Negative (Negative)
[2020-09-29 20:24] LABS: Anaplasma phagocytophilum Negative (Negative); B. miyamotoi PCR Negative (Negative); Babesia divergens/MO-1 Negative (Negative); Babesia duncani Negative (Negative); Babesia microti Negative (Negative); Ehrlichia chaffeensis Negative (Negative); Ehrlichia ewingii/canis Negative (Negative); Ehrlichia muris eauclairensis Negative (Negative)
== END 2020-09-26 12:25 | disposition home or self-care (01) ==
PROVIDERS: PCP Family Medicine; Visit Provider Physician Assistant
DX: M79.671 Pain in right foot (principal); M25.571 Pain in right ankle and joints of right foot; M19.071 Primary osteoarthritis, right ankle and foot; M77.31 Calcaneal spur, right foot; R50.9 Fever, unspecified; R53.81 Other malaise; C44.519 Basal cell carcinoma of skin of other part of trunk; R91.1 Solitary pulmonary nodule; Z20.822 Contact with and (suspected) exposure to COVID-19
CPT/HCPCS: 80053; 87798; U0003; U0005; 71046; 73630; 85025; 86618; 87086

== ENCOUNTER 2020-10-02 03:59 | Outpatient (CLI) | payer MEDICARE, SELFPAY ==
--- NOTE | 2020-10-02 07:15 | DI.CT_ITS ---
Exam(s) CT CHEST/ABD/PEL W EXAM: CT CHEST/ABD/PEL W CLINICAL HISTORY: chills,cough,fatigue,aches,abd.pain/pulm.nodule x TECHNIQUE: Imaging Protocol: Axial computed tomography images with coronal and sagittal reformatted images were created and reviewed CONTRAST MATERIAL: Intravenous: Omnipaque 350 Contrast volume:100 mL Oral: Yes COMPARISON: CR RT HIP COMPLETE AP PELVIS from 11/12/2015 CR RIGHT HIP 1 VIEW from 12/07/2016 CR RT HIP COMPLETE AP PELVIS from 03/08/2017 CR RT HIP COMPLETE AP PELVIS from 04/05/2017 CR XR HIP RT COMPLETE AP PELVIS from 06/09/2020 CR,XR XR CHEST 2V PA LATERAL from 09/26/2020 FINDINGS: CHEST: Tracheobronchial tree: Patent where visualized. Pulmonary parenchyma: There are several noncalcified pulmonary nodule seen in the lungs. The measure up to 7 mm in size. There is an area of scarring or atelectasis in the right lower lobe medially. No focal consolidating infiltrates are present. Visualized thyroid gland: Unremarkable. Mediastinum and Briana: There are enlarged mediastinal and hilar lymph nodes. There is a left hilar ly mph node which measures 1.5 cm in short axis. There is a right hilar lymph node measuring 1.3 cm in short axis diameter. Pleura: No effusion or pneumothorax. Heart: The heart is not dilated. Tucu-ch-yuzofsyg coronary artery calcification is present. No peric ardial effusion. Aorta: Thoracic aorta non-dilated. Lymph nodes: Please see the above discussion. Soft tissues: There is a 1 cm well-circumscribed nodule in the outer aspect of the right breast. Bones:Degenerative changes are seen in the spine. No suspicious lytic or sclerotic lesions are seen in the thoracic spine. ABDOMEN: Liver: Normal density. No measurable mass. Portal, Superior Mesenteric, and Splenic Veins: Unremarkable. Gallbladder and Biliary Tract: Cholelithiasis. No biliary ductal dilatation. Pancreas: Normal density, no abnormal calcifications or inflammatory process. Spleen: Normal. Adrenals: No masses seen. Kidneys: Normal size, contour and axis. No radiodense stones or obstructive uropathy. No masses seen. Abdominal Aorta: Abdominal portion non-dilated. Mild atherosclerosis. Bowel: No obstruction or bowel wall thickening. Appendix is unremarkable. Diverticulosis of the sigmo id colon, but no evidence of acute diverticulitis. Peritoneal Cavity: No ascites, collection or mesenteric inflammatory response. No free air. Lymph Nodes: Within normal limits. Bones: The patient has a right total hip replacement. There does appear to be a subtle increased scl erosis in the left iliac bone adjacent to the sacroiliac joint. There are degenerative changes in th e spine. Soft Tissues: Unremarkable. PELVIS: Bladder: Symmetric distention, no gross wall thickening. The urinary bladder is partially obscured du e to the artifact from the right hip prosthesis. Reproductive Organs: Status post hysterectomy. Lymph Nodes: Within normal limits. Bones: Please see the above discussion. IMPRESSION: 1. Cholelithiasis. No evidence of biliary ductal dilatation. 2. Colonic diverticulosis but no evidence of acute diverticulitis. 3. Subtle increased sclerosis in the left iliac bone adjacent to the sacroiliac joint. This is nonsp ecific, bone scan or MRI may be considered for further evaluation. 4. Multiple pulmonary nodules and enlarged mediastinal and hilar lymph nodes. Differential considera tions include infectious or inflammatory process or metastatic disease. 5. 1 cm nodule in the outer right breast. Mammography should be considered for further evaluation. Incidental Findings RADIATION DOSE DELIVERED: 955.83mGy.cm Total DLP DATA REPOSITORY: All CT scans at this facility are submitted to the National Radiology Data Registry (NRDR) Dose Index Registry (DIR) with the [employer] (ACR). RADIATION OPTIMIZATION: All CT scans at this facility use at least one of these dose optimization te chniques: automated exposure control; mA and/or kV adjustment per patient size (includes targeted exa ms where dose is matched to clinical indication); or iterative reconstruction.
[2020-10-02] MEDS: Omnipaque 350 MG/ML 50 ML BTL PO (09:29)
[2020-10-02] MEDS: Breeza Beverage 473 ML BTL PO ×2 (09:29→09:30)
[2020-10-02] MEDS: Omnipaque 350 MG/ML 100 ML BTL IJ (11:21)
[2020-10-02] MEDS: Normal Saline - Diluent 50 ML VIAL IV (11:21)
== END 2020-10-02 04:19 ==
PROVIDERS: PCP Family Medicine; Visit Provider Family Medicine
DX: R10.9 Unspecified abdominal pain (principal); R53.83 Other fatigue; R68.83 Chills (without fever); R05 Cough; R91.8 Other nonspecific abnormal finding of lung field; R59.0 Localized enlarged lymph nodes; K80.20 Calculus of gallbladder without cholecystitis without obstruction; N63.11 Unspecified lump in the right breast, upper outer quadrant; Z96.641 Presence of right artificial hip joint
CPT/HCPCS: 74177; 71260; J3490; Q9967

== ENCOUNTER 2020-10-06 14:45 | Outpatient (REF) | payer MEDICARE, SELFPAY ==
[2020-10-07 13:08] LABS: COVID-19 RT-PCR UVMMC Result Negative (Negative)
== END 2020-10-06 14:46 | disposition home or self-care (01) ==
LOC: NCHCN 14:45
PROVIDERS: PCP Family Medicine; Visit Provider Family Medicine
DX: Z20.822 Contact with and (suspected) exposure to COVID-19 (principal); R05 Cough
CPT/HCPCS: U0003

== ENCOUNTER 2020-10-07 02:21 | Outpatient (CLI) | payer MEDICARE, SELFPAY ==
--- NOTE | 2020-10-07 06:30 | DI.MAMMO_ITS ---
Exam(s) MAMMO SCREENING EXAM: MAMMO SCREENING CLINICAL HISTORY: screening/1cm nodule right breast-outer aspect ON CT, F/U ABNL CT TECHNIQUE: Bilateral full field digital CC and MLO mammographic images were obtained with 3D tomosyn thesis and utilizing computer aided detection (CAD). COMPARISON: Available for comparison. FINDINGS: Masses/Architectural Distortion: There is a well-circumscribed nodule in the upper outer quadrant of the right breast which is unchanged compared to prior examinations dating back to 2014. The finding is most suggestive of an intraparenchymal lymph node. This corresponds to the finding seen on the CT scan from 10/02/2020. No suspicious masses or areas of architectural distortion are seen. Microcalcifications: No suspicious pleomorphic-type are seen. Skin Thickening/Nipple Retraction: None. IMPRESSION: 1. No significant interval change with no specific features of malignancy noted. 2. Unless there is more urgent need, screening mammography is recommended, as per [place] guidelines. BI-RADS Category 2 - Benign Findings Breast Density - Category B - Scattered areas of fibroglandular density Breast density category C or D implies that the patient has dense breast tissue. Dense breast tissue is very common and is not abnormal but dense breast tissue can make it harder to find cancer on a ma mmogram. Also, dense breast tissue may increase their breast cancer risk. This information about the result of the mammogram report was provided to the patient to raise their awareness. Use this report when you speak with the patient about their risks for breast cancer, which includes their family hist ory. At that time, you may recommend for more screening tests (Ultrasound or MRI) as they might be us eful based on their risk. A negative radiographic report should not delay biopsy if a dominant or clinically suspicious mass is present. Up to ten percent of cancers are not identified on mammography. A negative report may reinforce clinical impression. Adenosis and dense breasts may obscure an underlying neoplasm. False positive reports average 6 to 10%. Patient will receive a letter notifying them of these results.
== END 2020-10-07 02:41 ==
PROVIDERS: PCP Family Medicine; Visit Provider Family Medicine
DX: Z12.31 Encounter for screening mammogram for malignant neoplasm of breast (principal); N63.11 Unspecified lump in the right breast, upper outer quadrant
CPT/HCPCS: 77063; 77067

== ENCOUNTER 2020-12-16 08:35 | Outpatient (CLI) | payer MEDICARE, SELFPAY ==
[2020-12-16 12:32] LABS: ALT 22 U/L (14-59); AST 17 U/L (15-37); Albumin 3.7 g/dL (3.4-5.0); Alkaline Phosphatase 94 U/L (46-116); Anion Gap 8.3 mmol/L (3-11); BUN 17 mg/dL (7-18); Bilirubin, Total 0.6 mg/dL (0.2-1.0); CO2 28.7 mmol/L (21.0-32.0); CREATININE 0.9 mg/dL (0.55-1.02); Calcium 9.5 mg/dL (8.5-10.1); Chloride 106 mmol/L (98-107); GGT 31 U/L (5-55); Glucose 88 mg/dL (74-106); Sodium 143 mmol/L (136-145); Total Protein 6.8 g/dL (6.4-8.2)
== END 2020-12-16 08:36 | disposition home or self-care (01) ==
PROVIDERS: PCP Family Medicine; Visit Provider Family Medicine
DX: R74.8 Abnormal levels of other serum enzymes (principal)
CPT/HCPCS: 36415; 80053; 82977

== ENCOUNTER 2021-09-13 12:24 | Outpatient (REF) | payer MEDICARE, SELFPAY | END 2021-09-13 12:25 | disposition home or self-care (01) | LOC: NCHCN 12:24 | PROVIDERS: PCP Family Medicine; Visit Provider Nurse Practitioner Family | DX: N76.0 Acute vaginitis (principal) | CPT/HCPCS: 87480; 87510; 87660 ==

== ENCOUNTER 2021-12-28 04:01 | Outpatient (CLI) | payer MEDICARE, SELFPAY ==
[2021-12-28 11:05] LABS: Calculated LDL 131 mg/dL (<100); Cholesterol 226 mg/dL (<200); HDL Cholesterol 68 mg/dL (40-60); Triglyceride 135 mg/dL (<150)
== END 2021-12-28 04:02 | disposition home or self-care (01) ==
LOC: LBO 04:02
PROVIDERS: PCP Family Medicine; Visit Provider Family Medicine
DX: Z00.00 Encounter for general adult medical examination without abnormal findings (principal); Z13.6 Encounter for screening for cardiovascular disorders
CPT/HCPCS: 36415; 80061

== ENCOUNTER → 2022-02-03 04:18 | Outpatient (CLI) | payer MEDICARE, SELFPAY ==
--- NOTE | 2022-02-03 08:15 | DI.DEXA_ITS ---
Exam(s) XR DEXA BONE DENSITY W/WO RUSTAM EXAM: XR DEXA BONE DENSITY W/WO RUSTAM CLINICAL HISTORY: f/u osteopenia, MENOPAUSAL DISORDER, N95.9, M85.80 TECHNIQUE: Routine DEXA evaluation of the lumbar spine, hip, or forearm. COMPARISON: Compared to prior DEXA scan of December 2018 FINDINGS: Performed on a HoloJUNIQE unit. Lateral image: No compression fracture evident. Lumbar Spine total T-score: -1.2. Prior 2019 reading was -1.4. Hip total T-score:-0.9. Prior 2019 reading was -0.6. Independent reading at the level of the femoral neck yields at T-score of -1.9. Forearm total T-score: -2.4 IMPRESSION: Bone mineral density measures in the osteopenia range. Fracture risk is moderate. Note: Any spine fracture indicates 5x risk for subsequent spine fracture and 2x risk for subsequent h ip fracture. World Health Organization criteria for BMD interpretation classify patients: Normal...... T- Score at or above -1.0 Osteopenic... T- Score between -1.0 and -2.5 Osteoporosis... T-Score at or below -2.5
== END ==
PROVIDERS: PCP Family Medicine; Visit Provider Family Medicine
DX: M85.88 Other specified disorders of bone density and structure, other site (principal); N95.9 Unspecified menopausal and perimenopausal disorder
CPT/HCPCS: 77080

== ENCOUNTER → 2022-05-02 14:06 | Outpatient (CLI) | payer MEDICARE, SELFPAY ==
--- NOTE | 2022-05-02 13:50 | DI.RAD_ITS ---
Exam(s) XR KNEE RT 3V AP,LAT,JOSEPH EXAM: XR KNEE RT 3V AP,LAT,JOSEPH CLINICAL HISTORY: ACUTE INCREASE IN RT KNEE PAIN, M25.561. TECHNIQUE: 2D digital imaging was performed. Three views. COMPARISON: No exams were available for comparison FINDINGS: BONES: No acute fracture is present. No bony destructive lesion is seen. Mild narrowing and periarti cular spurring of the lateral femoral tibial joint. Minimal enthesophyte at the quadriceps insertion . JOINTS: The knee is normally aligned. No significant joint effusion is seen. SOFT TISSUE: Normal. IMPRESSION: Minimal degenerative changes. DATA REPOSITORY: RADIATION DOSE DELIVERED:
== END ==
PROVIDERS: PCP Family Medicine; Visit Provider Nurse Practitioner Family
DX: M25.561 Pain in right knee (principal); M76.891 Other specified enthesopathies of right lower limb, excluding foot
CPT/HCPCS: 73562

== ENCOUNTER 2022-05-11 15:21 | Outpatient (REF) | payer MEDICARE, SELFPAY ==
[2022-05-12 10:14] LABS: Calcium (Random Urine) 9.3 mg/dL (See Note)
== END 2022-05-11 15:22 | disposition home or self-care (01) ==
LOC: LBN 15:21
PROVIDERS: PCP Family Medicine; Visit Provider Family Medicine
DX: D86.0 Sarcoidosis of lung (principal); K21.9 Gastro-esophageal reflux disease without esophagitis
CPT/HCPCS: 82340

== ENCOUNTER 2022-07-27 14:36 | Emergency (ER) | payer MEDICARE, SELFPAY ==
[2022-07-27 14:41] VITALS: BP 162/68; PULSE 60; RESP 18; TEMP 36.3; O2SAT 100
--- NOTE | 2022-07-27 15:15 | DI.CT_ITS ---
Exam(s) CT HEAD CERVICAL SPINE WO EXAM: CT HEAD CERVICAL SPINE WO CLINICAL HISTORY: fell hit head. TECHNIQUE: Imaging Protocol: Axial computed tomography images with coronal and sagittal reformatted images were created and reviewed COMPARISON: No exams were available for comparison FINDINGS: CT Head: Ventricles and Extra axial spaces: Normal in size and morphology for the patient's age. Hemorrhage: None. Cerebral parenchyma: No evidence of an acute territorial infarct. Midline shift: None. Brainstem/Cerebellum: Normal. Calvarium: Normal. Visualized Paranasal sinuses/Mastoids: Clear. Soft Tissues: Unremarkable. CT Cervical Spine: Bones: No acute fracture or subluxation. There are degenerative changes seen in the cervical spine. Soft Tissues: Unremarkable. Lung Apices: Clear. IMPRESSION: 1. No acute intracranial process. 2. No acute fracture or subluxation in the cervical spine. 3. Findings were discussed with the emergency department at 4:32 p.m. on 07/27/2022. RADIATION DOSE DELIVERED: 1,466.56mGy.cm Total DLP DATA REPOSITORY: All CT scans at this facility are submitted to the National Radiology Data Registry (NRDR) Dose Index Registry (DIR) with the [employer] (ACR). RADIATION OPTIMIZATION: All CT scans at this facility use at least one of these dose optimization te chniques: automated exposure control; mA and/or kV adjustment per patient size (includes targeted exa ms where dose is matched to clinical indication); or iterative reconstruction.
--- NOTE | 2022-07-27 15:39 | W.ED.GENAD ---
Discharge Plan Disposition Patient Disposition: Home Discharge Details Chief Complaint: HeadInjury Clinical Impression: Contusion of head, TMJ arthralgia Primary Care Provider: Jing Cabrales ED Provider: Darien Puente Home Meds and New Rx's Prescriptions: No Action omeprazole 20 mg capsule,delayed release(DR/EC) 20 mg PO DAILY PRN (Reason: gerd) Qty: 90 3RF Patient Comments: has not used for a long time Rx Instructions: take one capsule daily Discharge Instructions Instructions: Contusion in Adults (ED) Additional Instructions: At this time the CT scan of your head shows no evidence of bleed or fracture of your head or cervical spine. Your jaw shows no evidence of trauma. Please apply ice to your jaw at the right TMJ. Please use a heating pad for your neck and shoulder as frequently as possible. Continue to move your shoulder and neck in all directions to maintain mobility. If you notice any worsening of your symptoms, or any new symptoms such as vomiting, diarrhea, fever, chills, shortness of breath, chest pain, numbness, weakness, or fainting , please return immediately to the emergency department for reevaluation. Please follow up with your primary care provider as soon as possible for reassessment and reevaluation. As always, it was a pleasure participating in your medical care today. Referrals: Jing Cabrales MD [Primary Care Provider] - Medical Decision Making 77-year-old female with no significant past medical history except for sarcoidosis of the lung, GERD, previous right shoulder surgery, presents today for evaluation of a fall. Patient states that she was walking at 130 and slipped on ice and fell and hit the back of her head. She denies any loss of consciousness. She was able to get up on her own without assistance. She is not on any blood thinners. She states that after she got up she began to feel slightly stiff in her neck her right jaw and her right shoulder where she fell. She denies any focal pain though. She denies any numbness or tingling. She denies any weakness. No vision changes, no difficulty with ambulation. She has not taken anything for the pain. She has come in to be further evaluated. No other complaints at this time. No complaint of headache. Stiffness is improved with movement mobility of the right shoulder and neck. No other modifying factors.. Exam demonstrates well-appearing female, no midline cervical thoracic or lumbar spine tenderness. No tenderness in the right shoulder or back to suggest fracture. No range of motion restriction or other significant abnormality. Patient does have mild tenderness over right TMJ, but no evidence of dislocation clinically. Differential secondary to the patient's age and risk factors does include brain bleed, or other acute osseous abnormality of the head. We will get a CT scan of this area, monitor closely and reassess. I did offer NSAIDs to the patient for pain control, and she is notably resistant to taking any medication. She is declined at this time. 5:[address] scan of the head neck is negative for acute process. Patient feels well. Patient is still refusing any pain medications or NSAIDs or muscle relaxants. Repeat exam continues to demonstrate no evidence of acute neurologic deficit. No evidence of clinical fracture either. Patient stable for discharge. Will recommend heat for the shoulder and back and neck, and ice for the jaw. Recommend Tylenol as well. Discussed red flags which to return. No evidence of neurologic deficit or significant musculoskeletal injury at this time based on clinical exam and CT findings. I have extensively reviewed the treatment plan and discharge instructions with the patient. I have addressed all patient concerns at this time. The patient was made aware of what symptoms to monitor for that would warrant a return to the emergency department. Discussed the plan with the patient, they demonstrate verbal understanding and agreement with our assessment and plan at this time. The documentation in this chart was dictated using [employer] dictation software. Please excuse any dictation errors. FINDINGS: CT Head: Ventricles and Extra axial spaces: Normal in size and morphology for the patient's age. Hemorrhage: None. Cerebral parenchyma: No evidence of an acute territorial infarct. Midline shift: None. Brainstem/Cerebellum: Normal. Calvarium: Normal. Visualized Paranasal sinuses/Mastoids: Clear. Soft Tissues: Unremarkable. CT Cervical Spine: Bones: No acute fracture or subluxation. There are degenerative changes seen in the cervical spine. Soft Tissues: Unremarkable. Lung Apices: Clear. IMPRESSION: 1. No acute intracranial process. 2. No acute fracture or subluxation in the cervical spine. 3. Findings were discussed with the emergency department at 4:32 p.m. on 07/27/2022. HPI General Date/Time Provider Initiated Documentation: 07/27/22 15:00. HPI Narrative: 77-year-old female with no significant past medical history except for sarcoidosis of the lung, GERD, previous right shoulder surgery, presents today for evaluation of a fall. Patient states that she was walking at 130 and slipped on ice and fell and hit the back of her head. She denies any loss of consciousness. She was able to get up on her own without assistance. She is not on any blood thinners. She states that after she got up she began to feel slightly stiff in her neck her right jaw and her right shoulder where she fell. She denies any focal pain though. She denies any numbness or tingling. She denies any weakness. No vision changes, no difficulty with ambulation. She has not taken anything for the pain. She has come in to be further evaluated. No other complaints at this time. No complaint of headache. Stiffness is improved with movement mobility of the right shoulder and neck. No other modifying factors. Related Data Home Medications Medication Instructions Recorded Confirmed omeprazole 20 mg capsule,delayed 20 mg PO DAILY PRN gerd #90 caps 06/25/21 07/27/22 release Previous Rx's Medication Instructions Recorded omeprazole 20 mg capsule,delayed 20 mg PO DAILY PRN gerd #90 caps 06/25/21 release Allergies Allergy/AdvReac Type Severity Reaction Status Date / Time homatropine Allergy Severe Other (See Verified 07/27/22 14:47 Comment) hydrocodone AdvReac Severe Other (See Verified 07/27/22 14:47 Comment) General Stated Complaint: HeadInjury ERON: 3 Review of Systems All systems reviewed & are unremarkable except as noted in HPI and below PFSH All Active Problems (Updated 07/27/22 @ 17:03 by Darien Puente DO) Contusion of head (Acute) TMJ arthralgia (Acute) Right knee pain (Acute) Osteopenia determined by x-ray (Chronic ~2019) Postmenopausal atrophic vaginitis (Chronic) Sarcoidosis of lung (Chronic) Postnasal drip (Chronic) Chronic rhinitis (Chronic) GERD (gastroesophageal reflux disease) (Chronic) ALBERT on CPAP (Chronic) Refuses to use CPAP machine. 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 Paternal Grandfather , 80ish No problems noted. Maternal Grandmother , 99 No problems noted. Paternal Grandmother , 70ish - MVA No problems noted. Son No problems noted. Daughter No problems noted. 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 Pets and animals: No Sexually active: No Do you think of yourself as: straight/heterosexual Current gender identity: female What is your relationship status?: How often do you talk on the phone with friends or family?: three or more times per week How often do you get together with friends or relatives?: three or more times per week How often do you attend druze or restoration services?: decline to answer Do you belong to any clubs or organized social groups?: no Panel score (0-1 are the most socially isolated patients): 1 What type of physical activity do you participate in: walking and other Details: Gardening Duration: 30-45 minutes/day Frequency: 3-4 times per week Maricruz/Buddhist: No preference Special maricruz needs: No Seatbelt use: always Helmet use: No Drive intox or ride w/intox auto driver: No Do you feel safe at home: Yes Do you feel safe in your relationship?: Yes Exam Narrative Exam Narrative: 1.Const: Well-nourished, Well-developed, appearing stated age 2.Eyes: PERRL, no conjunctival injection, and symmetrical lids. 3.ENT: Atraumatic external nose and ears. Moist MM. Neck: Symmetric, trachea midline, No thyromegaly. There is no evidence of raccoon eyes, odom sign, CSF rhinorrhea, mastoid tenderness, cranial crepitus, hemotympanum, exophthalmos, or hyphema. Patient demonstrates intact dentition with no signs of tooth avulsion or fracture, no signs of jaw deformity, no evidence of a LeFort's fracture, with an intact palate, nose and orbital region. There is no evidence of a nasal septal hematoma. No proptosis. Jaw closes symmetrically. Airway is clear. Mild achiness with movement of the right TMJ. No evidence of dislocation. 4.CVS: +S1/S2, No murmurs or gallops. Peripheral pulses 2+ and equal in all extremities. Brisk capillary refill in all extremities. 5.RESP: Unlabored respiratory effort. Clear to auscultation bilaterally. No wheezes rales or rhonchi 6.GI: Soft, Nontender/Nondistended, No hepatosplenomegaly. No guarding or rebound. 7.MSK: Normocephalic/Atraumatic, Extremities w/o deformity or ttp No cyanosis or clubbing, Normal movement of all extremities Right shoulder demonstrates no focal tenderness over the acromion, humerus, or scapula. Good range of motion. No restriction. No pain of significance with internal or external rotation. No midline tenderness to palpation over the CTLS spine. Normal ROM in flexion, extension, side bend, and rotation. Patient has +5 out of 5 strength in the lower extremities in dorsiflexion and plantarflexion, knee flexion and extension, hip flexion and extension. Normal strength for dorsiflexion and plantar flexion of the great toe bilaterally. There is +2 over 2 dorsalis pedis pulses bilaterally. There is normal sensation to the skin with light touch at the foot, knee, and hip. Normal saddle sensation. Good sensation over the deep sural nerve area bilaterally. Rectal exam demonstrates good rectal tone with excellent indira-rectal sensation. Reflexes are +2 over 4 in the patellar reflex bilaterally. +5 out of 5 strength in the medial, ulnar, radial nerve distribution bilaterally in the hands as well as intact light touch sensation to these dermatomes on the hands 8.Skin: Warm, Dry. No rashes or lesions. 9.Neuro: physical therapy director II-XII grossly intact. Sensation grossly intact, no focal neurologic deficits. 10.Psych: (AAO) x3. Appropriate mood and affect Course Vital Signs Vital signs: Vital Signs Temperature 36.3 C L 07/27/22 14:41 Pulse 60 07/27/22 14:41 Respiratory Rate 18 07/27/22 14:41 Blood Pressure 162/68 H 07/27/22 14:41 Pulse Oximetry 100 07/27/22 14:41 Temperature 36.3 C L 07/27/22 14:41 Temperature Source Tympanic 07/27/22 14:41 Pulse 60 07/27/22 14:41 Respiratory Rate 18 07/27/22 14:41 Blood Pressure 162/68 H 07/27/22 14:41 Blood Pressure Position Sitting 07/27/22 14:41 Pulse Oximetry 100 07/27/22 14:41 Oxygen Delivery Method Room Air 07/27/22 14:41 Oxygen Flow Rate 0 07/27/22 14:41 Pain Level 8 07/27/22 14:41 Comment denies otc relief after fall 07/27/22 14:41 Lab/Test Results Lab/Test Results: Laboratory Tests Range/Units 07/27/22 07/27/22 15:11 15:11 WBC Cancelled RBC Cancelled Hgb Cancelled Hct Cancelled MCV Cancelled MCH Cancelled MCHC Cancelled RDW Cancelled Plt Count Cancelled MPV Cancelled Immature Gran % Cancelled Neutrophils % Cancelled Band Neutrophils % Cancelled Lymphocytes % Cancelled Atypical Lymphs % Cancelled Monocytes % Cancelled Eosinophils % Cancelled Basophils % Cancelled Metamyelocytes % Cancelled Myelocytes % Cancelled Promyelocytes % Cancelled Other Cells % Cancelled Nucleated RBC % Cancelled Absolute Neutrophils Cancelled Absolute Lymphocytes Cancelled Absolute Monocytes Cancelled Absolute Eosinophils Cancelled Absolute Basophils Cancelled RBC Morphology Cancelled Polychromasia Cancelled Hypochromasia Cancelled Poikilocytosis Cancelled Basophilic Stippling Cancelled Anisocytosis Cancelled Microcytosis Cancelled Macrocytosis Cancelled Spherocytes Cancelled Tear Drop Cells Cancelled Ovalocytes Cancelled Stomatocytes Cancelled [place] Bodies Cancelled [place] Cells/Echinocytes Cancelled Acanthocytes (Spur) Cancelled Schistocytes Cancelled Sodium Cancelled Potassium Cancelled Chloride Cancelled Carbon Dioxide Cancelled Anion Gap Cancelled BUN Cancelled Creatinine Cancelled Est GFR (CKD-EPI 2020) Cancelled Glucose Cancelled Calcium Cancelled Total Bilirubin Cancelled AST Cancelled ALT Cancelled Alkaline Phosphatase Cancelled Total Protein Cancelled Albumin Cancelled
[2022-07-27 16:48] VITALS: BP 189/71; PULSE 72; RESP 19; TEMP 36.9; O2SAT 98
[2022-07-27 17:17] VITALS: BP 154/68; PULSE 62; RESP 17; TEMP 36.7; O2SAT 100
== END 2022-07-27 17:18 | disposition home or self-care (01) ==
PROVIDERS: Emergency Provider Student in an Organized Health Care Education/Training Program; PCP Family Medicine
DX: S00.93XA Contusion of unspecified part of head, initial encounter (principal); G89.11 Acute pain due to trauma; M26.621 Arthralgia of right temporomandibular joint; W00.0XXA Fall on same level due to ice and snow, initial encounter; Y93.01 Activity, walking, marching and hiking
CPT/HCPCS: 80053; 96374; 96375; 99284; 70450; 72125; 85025

== ENCOUNTER 2022-08-03 10:35 | Outpatient (CLI) | payer MEDICARE, SELFPAY ==
[2022-08-03 12:28] LABS: Abs Immature Grans 0.02 10^3/uL (0.0-0.06); Absolute Basophil Count 0.03 10^3/uL (0.0-0.2); Absolute Eosinophil Count 0.17 10^3/uL (0.0-0.7); Absolute Lymphocyte Count 1.66 10^3/uL (1.2-3.4); Absolute Monocyte Count 0.66 10^3/uL (0.1-0.8); Absolute Neutrophil Count 4.32 10^3/uL (1.2-6.7); Basophils % 0.4; Eosinophils % 2.5; HCT 42.4 % (36.0-46.0); HGB 13.8 g/dL (11.2-15.7); Immature Grans % 0.3; Lymphocytes % 24.2; MCH 30.7 pg (27.0-33.0); MCHC 32.5 % (32.0-36.0); MCV 94 fL (80-95); MPV 10.1 fL (8.0-11.0); Monocytes % 9.6; Platelet Count 229 10^3/uL (130-400); RBC 4.49 10^6/uL (3.93-5.22); RDW 12.3 % (11.7-14.6); RDW-SD 43.2 fL; WBC 6.86 10^3/uL (4.4-10.8)
[2022-08-03 12:33] LABS: C-Reactive Protein 0.08 mg/dL (0.0-0.3); ESR 3 mm/hr (0-30)
== END 2022-08-03 10:36 | disposition home or self-care (01) ==
LOC: LOS 10:35
PROVIDERS: PCP Family Medicine; Referring Provider Family Medicine; Visit Provider Family Medicine
DX: M25.50 Pain in unspecified joint (principal); M26.621 Arthralgia of right temporomandibular joint; R51.9 Headache, unspecified
CPT/HCPCS: 36415; 85652; 85025; 86140

== ENCOUNTER → 2022-08-18 08:34 | Outpatient (BNVA) | payer MEDICARE, SELFPAY | PROVIDERS: PCP Family Medicine; Referring Provider Family Medicine; Visit Provider Student in an Organized Health Care Education/Training Program | DX: M70.51 Other bursitis of knee, right knee (principal) | CPT/HCPCS: 99213 ==

== ENCOUNTER 2023-01-03 03:54 | Outpatient (CLI) | payer MEDICARE, SELFPAY ==
--- NOTE | 2023-01-03 07:45 | DI.RAD_ITS ---
Exam(s) XR WRIST LT COMPLETE EXAM: XR WRIST LT COMPLETE CLINICAL HISTORY: left wrist pain, M25.532. TECHNIQUE: 2D digital imaging was performed. Three views. COMPARISON: No exams were available for comparison FINDINGS: BONES: No acute fracture is present. No bony destructive lesion is seen. JOINTS: The carpal bones are normally aligned. Mild intercarpal degenerative changes. SOFT TISSUE: Swelling greatest at radial aspect.. IMPRESSION: Mild degenerative changes. Soft tissue swelling. DATA REPOSITORY: RADIATION DOSE DELIVERED:
== END 2023-01-03 04:14 ==
LOC: DI 03:58
PROVIDERS: PCP Nurse Practitioner Family; Visit Provider Nurse Practitioner Family
DX: M25.532 Pain in left wrist (principal)
CPT/HCPCS: 73110

== ENCOUNTER 2023-01-04 08:14 | Outpatient (RCR) | payer MEDICARE, SELFPAY ==
--- NOTE | 2023-01-04 08:00 | HOLTER_ITS ---
APPROVED REPORT Conclusion This is a 48-hour Holter monitor ordered for bradycardia Rhythm throughout was sinus. Average heart rate was 72. Minimum was 53, maximum 108 There were occasional ventricular ectopic beats, rare couplets. There was one 4 beat run of nonsusta ined ventricular tachycardia There were very rare atrial premature beats There was no atrial fibrillation, no high-grade AV block, no pauses greater than 3 seconds
--- NOTE | 2023-01-04 08:00 | RT.EKG_ITS ---
APPROVED REPORT Exam: Resting ECG Reason for Exam: bradycardia, SOB Patient Location: O HR:68 bpm ECG Measurements Heart Rate 68 AXIS GA 157 P 66 QRSd 105 QRS 64 QT 424 T 70 QTc 451 Conclusion Sinus rhythm...normal P axis, V-rate 50- 99 Ventricular trigeminy...trigeminy string>6 w/ V complexes Probable left atrial enlargement...P >50mS, <-0.10mV V1 Minimal ST depression, diffuse leads...ST <-0.03mV, ant/lat/inf
== END 2023-02-02 23:59 | disposition home or self-care (01) ==
LOC: CARDOPNVT 08:14
PROVIDERS: PCP Nurse Practitioner Family; Visit Provider Nurse Practitioner Family
DX: R00.1 Bradycardia, unspecified (principal); D86.0 Sarcoidosis of lung
CPT/HCPCS: 93005; 93010; 93225; 93226

== ENCOUNTER 2023-01-19 05:29 | Outpatient (CLI) | payer MEDICARE, SELFPAY ==
[2023-01-19 12:23] LABS: Abs Immature Grans 0.03 10^3/uL (0.0-0.06); Absolute Basophil Count 0.06 10^3/uL (0.0-0.2); Absolute Eosinophil Count 0.29 10^3/uL (0.0-0.7); Absolute Lymphocyte Count 1.75 10^3/uL (1.2-3.4); Absolute Monocyte Count 0.59 10^3/uL (0.1-0.8); Absolute Neutrophil Count 4.33 10^3/uL (1.2-6.7); Basophils % 0.9; Eosinophils % 4.1; HCT 44.8 % (36.0-46.0); HGB 14.8 g/dL (11.2-15.7); Immature Grans % 0.4; Lymphocytes % 24.8; MCV 94 fL (80-95); Monocytes % 8.4; Neutrophils % 61.4; Platelet Count 303 10^3/uL (130-400); RBC 4.77 10^6/uL (3.93-5.22); RDW 11.9 % (11.7-14.6); RDW-SD 41.5 fL; WBC 7.05 10^3/uL (4.4-10.8)
[2023-01-19 12:34] LABS: ALT 19 U/L (14-59); AST 17 U/L (15-37); Albumin 3.8 g/dL (3.4-5.0); Alkaline Phosphatase 88 U/L (46-116); Anion Gap 7.7 mmol/L (3-11); BUN 18 mg/dL (7-18); Bilirubin, Total 1.1 mg/dL (0.2-1.0); CO2 30.3 mmol/L (21.0-32.0); CREATININE 0.9 mg/dL (0.55-1.02); Calcium 9.9 mg/dL (8.5-10.1); Calculated LDL 119 mg/dL (<100); Chloride 107 mmol/L (98-107); Cholesterol 207 mg/dL (<200); Estimated GFR 66.26 (mL/min/1.73m2); Glucose 92 mg/dL (74-106); HDL Cholesterol 68 mg/dL (40-60); Potassium 4.2 mmol/L (3.5-5.1); Sodium 145 mmol/L (136-145); Total Protein 7.4 g/dL (6.4-8.2); Triglyceride 104 mg/dL (<150)
== END 2023-01-19 05:30 | disposition home or self-care (01) ==
LOC: LOS 05:30
PROVIDERS: PCP Nurse Practitioner Family; Visit Provider Nurse Practitioner Family
DX: D86.0 Sarcoidosis of lung (principal); E78.5 Hyperlipidemia, unspecified; G47.33 Obstructive sleep apnea (adult) (pediatric); K21.9 Gastro-esophageal reflux disease without esophagitis; M85.80 Other specified disorders of bone density and structure, unspecified site; Z00.00 Encounter for general adult medical examination without abnormal findings; Z99.89 Dependence on other enabling machines and devices; R00.1 Bradycardia, unspecified
CPT/HCPCS: 36415; 80053; 80061; 85025

== ENCOUNTER → 2023-02-01 00:26 | Outpatient (CLI) | payer MEDICARE, SELFPAY ==
--- NOTE | 2023-02-01 07:00 | DI.US_ITS ---
APPROVED REPORT EXAM: Comprehensive 2D, Doppler, and color-flow Echocardiogram Patient Location: Out-Patient Social Economist: Elmer Coleman RDCS (AE) Indications: sarcoidosis, bradycardia Other Information Study Quality: Good Conclusion Normal left ventricular wall thickness and chamber size. Ejection fraction is 60%. Wall motion is n ormal Normal right ventricular size and systolic function Both atria are normal in size Mildly sclerotic trileaflet aortic valve without stenosis or regurgitation Normal mitral valve with moderate regurgitation Normal tricuspid valve with mild regurgitation. Estimated right ventricular systolic pressure is 30 mmHg Wall motion Left Ventricle The left ventricle is normal size. The left ventricular systolic function is normal. The left ventric ular ejection fraction is within the normal range. There is normal left ventricular wall thickness. T here is normal LV segmental wall motion. There is no ventricular septal defect visualized. LVEF is 60 %. Right Ventricle The right ventricle is normal size. The right ventricular systolic function is normal. The RVSP is 30 .4 mmHg. Atria The left atrium size is normal. The right atrium size is normal. The interatrial septum is intact wit h no evidence for an atrial septal defect. Aortic Valve The Aortic valve is mildly sclerotic. Aortic valve is trileaflet. There is no aortic valvular stenosi s. Mitral Valve The mitral valve is normal in structure. No evidence of mitral valve stenosis. Moderate mitral regurg itation. Tricuspid Valve The tricuspid valve is normal in structure. There is no tricuspid valve stenosis. Mild tricuspid regu rgitation. Pulmonic Valve The pulmonary valve is normal in structure. There is no pulmonic valvular stenosis. There is no pulmo jay valvular regurgitation. Great Vessels The aortic root is normal in size. The ascending aorta is normal in size. Aortic arch is normal in ca liber. IVC is normal in size and collapses >50% with inspiration. Pericardium There is no pericardial effusion. 2D Dimensions IVSD d PLAX 0.91 cm F: 0.6-1.0 Ao Root d 2.66 cm F: 2.7 - 3.3 LVPW d PLAX 0.87 cm F: 0.6 - 1.0 Ao Asc Diam d 2.90 cm F: 2.3 - 3.1 LVID d PLAX 4.39 cm F: 3.8 - 5.2 LVDs 2.98 cm F: 2.2 - 3.5 LV EF Teichholz 60.6 % FS 32.14 % LV EDV (Teich) 87.3 mL LV ESV (Teich) 34.4 mL Stroke Vol Index (Teich) 32.24 M-Mode TAPSE 2.89 cm (M/F) >1.7 Auto EF LV EDV A4C 100.3 mL LV EDV A2C 97.8 mL LV EDV BP 99.7 mL LV ESV A4C 40.0 mL LV ESV A2C 41.5 mL LV ESV BP 40.4 mL LVEF(%) A4C 60.2 % LVEF(%) A2C 57.5 % LVEF(%) BP 59.5 % LV SV A4C 60.3 ml LV SV A2C 56.2 ml LV SV BP 59.3 ml LV CO A4C 2.6 L/min LV CO A2C 2.4 L/min LV CO BP 2.5 L/min HR A4C 42.46 BPM HR A2C 42.96 BPM LV EDV Index (BP) LA Volume LA Length A4C 5.2 cm LA Length A2C LA Area A4C s 14.23 cm2 LA Area A2C s LA Vol A4C A-L 33.14 mL LA Vol A2C A-L LA Vol Biplane A-L LA Vol A4C MOD 31.3 mL LA Vol A2C MOD LA Vol BP MOD RA Volume RA Area A4C 9.8 cm2 RA ESV A4C (A-L) 19.6mL RA Vol/BSA A4C A-L RA Length A4C 4.2 cm RA ESV A4C (MOD) 19.6mL LV Diastology MV E' medial 0.082 (>0.07 m/s) MV E Vmax 0.82 (0.4-1.3 m/s) MV E/E' MED 10.02 (<14) MV A Vmax 1.00 (0.4-1.3 m/s) MV E' lateral 0.097 (>0.1 m/s) E/A Ratio 0.8 MV E/E' LAT 8.46 (<14) MV E' Average 0.090 m/s MV E/E'(average) 9.17 Aortic Valve AoV Vmax 1.07 m/s LVOT Vmax 1.01 m/s AoV Peak Grad 4.5 mmHg LVOT Peak Grad 4.1 mmHg AoV Area (Vmax) 2.30 cm2 LVOT VTI 0.265 m AoV VTI 0.265 m LVOT Mean Grad 2.2 mmHg AoV Mean Leroy. 0.76 m/s LVOT SV 64.45 mL AoV Mean Grad 2.5 mmHg LVOT Diam s 1.75 cm AoV Area (VTI) 2.43 cm2 Velocity Ratio 0.94 Mitral Valve MV DT 152 (160-240 msec) MR Vmax 5.00 m/s MV Vmax TIPS 0.95 m/s MR VTI 2.090 m MV Mean Grad 1.4 (<2mmHg) MR Peak Grad 99.8 mmHg MV VTI 0.376 m MR Mean Grad 71.0 mmHg MR PISA Radius 0.38 cm MR Aliasing Velocity 0.30 m/s Pulmonary Valve PV Vmax 0.67 (0.5-1.5 m/s) RVOT Vmax 0.55 m/s PV Peak Grad 1.8 mmHg RVOT Peak Gr. 1.2 mmHg PV Mean Leroy 0.51 m/s RVOT VTI 0.146 m PV Mean Grad 1.2 mmHg RVOT Mean Gr. 0.8 mmHg Tricuspid Valve RA Pressure 3.00 mmHg TR Vmax 2.62 m/s TR Peak Grad 27.4 mmHg RVSP (TR) 30.4 mmHg
== END ==
PROVIDERS: PCP Nurse Practitioner Family; Visit Provider Nurse Practitioner Family
DX: D86.0 Sarcoidosis of lung (principal); R00.1 Bradycardia, unspecified
CPT/HCPCS: 93306

== ENCOUNTER → 2023-03-06 09:44 | Outpatient (BNVA) | payer MEDICARE, SELFPAY | PROVIDERS: PCP Nurse Practitioner Family; Referring Provider Nurse Practitioner Family | DX: M65.4 Radial styloid tenosynovitis [de Quervain] (principal) | CPT/HCPCS: 20550; J1030 ==

== ENCOUNTER → 2023-03-17 21:25 | Outpatient (CLI) | payer MEDICARE, SELFPAY ==
--- NOTE | 2023-03-17 09:30 | DI.RAD_ITS ---
Exam(s) XR HIP LT COMPLETE AP PELVIS EXAM: XR HIP LT COMPLETE AP PELVIS CLINICAL HISTORY: low back and left hip pain,m25.552. TECHNIQUE: 2D digital imaging was performed. Two views. COMPARISON: CR XR HIP RT COMPLETE AP PELVIS from 06/09/2020 FINDINGS: BONES: No acute fracture is present. No bony destructive lesion is seen. The right hip prosthesis a ppears unchanged. Enthesophytes at iliac wings and greater trochanters. JOINTS: There is mild narrowing of the right hip joint space. There is moderate periarticular spurri ng. The SI joints show mild spurring. SOFT TISSUE: Normal. IMPRESSION: Xayy-no-kikizkwu degenerative changes of the left hip. DATA REPOSITORY: RADIATION DOSE DELIVERED:
--- NOTE | 2023-03-17 09:30 | DI.RAD_ITS ---
Exam(s) XR LUMBAR SPINE COMPLETE EXAM: XR LUMBAR SPINE COMPLETE CLINICAL HISTORY: low back and left hip pain,m54.50. TECHNIQUE: 2D digital imaging was performed. Five views. COMPARISON: CR XR DEXA BONE DENSITY W/WO RUSTAM from 02/03/2022 FINDINGS: BONES: No fracture or destructive lesion. Vertebral body heights are maintained. Small endplate oste ophytes. Facet hypertrophy present greater at L4-5 and L5-S1.. Right hip prosthesis. Mild degenera tive changes right SI joint. DISKS: Intervertebral disc spaces are maintained. ALIGNMENT: Mild levoscoliosis. SOFT TISSUE: Normal. IMPRESSION: Degenerative changes of the lower lumbar spine. Mild scoliosis. DATA REPOSITORY: RADIATION DOSE DELIVERED:
== END ==
PROVIDERS: PCP Nurse Practitioner Family; Visit Provider Nurse Practitioner Family
DX: M51.36 Other intervertebral disc degeneration, lumbar region (principal); M16.12 Unilateral primary osteoarthritis, left hip
CPT/HCPCS: 72110; 73502

== ENCOUNTER 2023-04-17 04:07 | Outpatient (CLI) | payer MEDICARE, SELFPAY ==
[2023-04-18 10:10] LABS: Lyme Ab w Rflx to Lyme Confirm Negative (Negative)
[2023-04-20 18:00] LABS: Anaplasma phagocytophilum Negative (Negative); B. miyamotoi PCR Negative (Negative); Babesia divergens/MO-1 Negative (Negative); Babesia duncani Negative (Negative); Babesia microti Negative (Negative); Ehrlichia chaffeensis Negative (Negative); Ehrlichia ewingii/canis Negative (Negative); Ehrlichia muris eauclairensis Negative (Negative)
== END 2023-04-17 04:08 | disposition home or self-care (01) ==
LOC: LBO 04:07
PROVIDERS: PCP Nurse Practitioner Family; Visit Provider Nurse Practitioner Family
DX: T14.8XXA Other injury of unspecified body region, initial encounter (principal); W57.XXXA Bitten or stung by nonvenomous insect and other nonvenomous arthropods, initial encounter
CPT/HCPCS: 36415; 87798; 86618

== ENCOUNTER → 2023-07-17 07:57 | Outpatient (BNVA) | payer MEDICARE, SELFPAY | PROVIDERS: PCP Nurse Practitioner Family; Referring Provider Nurse Practitioner Family; Visit Provider Student in an Organized Health Care Education/Training Program | DX: M65.341 Trigger finger, right ring finger (principal); M67.431 Ganglion, right wrist | CPT/HCPCS: 99213 ==

== ENCOUNTER 2023-08-09 06:03 | Day surgery (SDC) | payer MEDICARE, SELFPAY ==
[2023-08-09 06:20] VITALS: BP 155/87; PULSE 72; RESP 16; TEMP 36.6; O2SAT 98
--- NOTE | 2023-08-09 07:10 | PDOC.DSDIS_ITS ---
Date of service: 08/09/23 Time of Service: 07:10 Discharge Plan Disposition Patient Disposition: Home Condition: Good Discharge Details Reason For Visit: RRF Trigger Release Attending Provider: Jack Morales Primary Care Provider: Judith Ackerman Home Meds and New Rx's Prescriptions: New acetaminophen 500 mg tablet 1,000 mg PO TID Qty: 90 0RF ibuprofen 600 mg tablet 600 mg PO TID PRN (Reason: pain) Qty: 90 0RF No Action No Known Home Meds Discharge Instructions Stand Alone Forms: Andrew Brewer Finger Release, Samuel Hobson (DSU) Referrals: Jack Morales MD [ [facility] STAFF PHYSICIAN] - 08/18/23 8:45 am Activity:: Activity as Tolerated Remove Dressings/Wound Care:: 48 hours Shower/Bathe:: 48 hours Diet:: As Tolerated Discharge Orders Discharge Orders: Discharge Order (Routine); Ordered 08/09/23 Ordered By: Víctor Walters DS: Diagnosis Discharge Diagnosis (1) Trigger finger, right ring finger: Status: Acute
[2023-08-09] MEDS: Sodium Bicarbonate 50 MEQ/50 ML VIAL (07:35)
[2023-08-09] MEDS: Lidocaine 1% Multi-Dose W/EPI 1/100,000 50 ML VIAL (07:35)
[2023-08-09 07:44] VITALS: BP 130/66; PULSE 63; RESP 18; TEMP 36.3; O2SAT 98
--- NOTE | 2023-08-09 08:36 | ROE_ITS ---
Date of service: 08/09/23 Time of Service: 07:30 Operative Note Operative Note DATE OF PROCEDURE: 08/09/23 PRE-OP DIAGNOSIS: Right Ring Finger Trigger Finger POST-OP DIAGNOSIS: same PROCEDURE: Trigger Finger Release - Right Ring Finger SURGEON: Jack Morales DOCUMENT CONTROL CLERK: Víctor Walters ANESTHESIA TYPE: Local By Surgeon Refer to Anesthesia Record ESTIMATED BLOOD LOSS: 0 PATHOLOGY: none sent COMPLICATIONS: None Patient was transported to: same day Patient's condition: stable Indications: I have seen Klaudia in clinic for symptoms of a trigger finger. The catching, clicking, locking, and pain limited function. The diagnosis of trigger finger was evident. The symptoms had not responded to conservative measures. I discussed trigger finger release with the patient. I reviewed the risks of the procedure to include, but not limited to, bleeding, infection, pain, stiffness, incomplete release, damage to nerves or vessels, continued catching, recurrence. Despite these risks, the patient elected to proceed. Findings: There was a tightened A1 cooper which was released. The flexor tendons were inspected and the patient was able to move the finger without any catching, clicking, or locking. Procedure Description: Klaudia was greeted in the preoperative holding area where the correct side was identified and marked. The consent was reviewed with the patient and signed. All questions were answered. She was taken back to the operating room. The patient was placed into the supine position on the operating room table with the right arm on an arm board. All bony prominences were well padded. No prophylactic antibiotics were administered since this was a clean, elective hand surgical case. The right arm was then prepped with Chloraprep and draped in a standard fashion with stockinette and extremity drape. A timeout to confirm correct identity, side and site, procedure, allergies, anesthesia, and medical concerns was performed. The surgical site was marked as a longitudinal incision directly over the A1 cooper of the involved digit. This was confirmed with palpation during finger flexion. This area, overlying the metacarpal head, was then anesthetized with 1% Lidocaine. The patient tolerated this well and once the anesthetic had setup, the procedure began. A longitudinal incision was made through skin only, approximately 1cm. The deep tissues were dissected bluntly. Once the A1 cooper and flexor tendons were identified the soft tissue including neurovascular structures were retracted medially and laterally. There were no crossing structures over the A1 cooper. The proximal edge of the cooper was identified and the cooper was incised with tenotomy scissors. There was a release of the tendons once this was fully released. The tendons were then removed from the wound and inspected. Excess synovium was resected. The tendons were then returned and the patient was asked to move the finger into deep flexion and back to extension. There was no recreation of the pre-operative symptoms. The hand was then once more inspected for any A0 cooper or area of possible constriction. The wound was then irrigated and the skin was closed with a 4-0 Nylon. This was dressed with gauze and a Conform dressing. The patient tolerated the procedure well and was returned to the Same Day Surgery area in a stable condition suffering no known complication.
== END 2023-08-09 08:00 | disposition home or self-care (01) ==
PROVIDERS: PCP Nurse Practitioner Family; Visit Provider Student in an Organized Health Care Education/Training Program
PROC: (CPT 26055; principal; 2023-08-09 07:30)
DX: M65.341 Trigger finger, right ring finger (principal)
CPT/HCPCS: 26055; J2004

== ENCOUNTER → 2023-08-21 09:58 | Outpatient (BNVA) | payer MEDICARE, SELFPAY | PROVIDERS: PCP Nurse Practitioner Family; Referring Provider Nurse Practitioner Family; Visit Provider Student in an Organized Health Care Education/Training Program | DX: Z47.89 Encounter for other orthopedic aftercare (principal); M79.641 Pain in right hand ==

== ENCOUNTER → 2023-10-05 08:03 | Outpatient (BNVA) | payer MEDICARE, SELFPAY | PROVIDERS: PCP Nurse Practitioner Family; Referring Provider Nurse Practitioner Family; Visit Provider Student in an Organized Health Care Education/Training Program | DX: Z47.89 Encounter for other orthopedic aftercare (principal); M25.641 Stiffness of right hand, not elsewhere classified ==

== ENCOUNTER → 2023-11-17 07:49 | Outpatient (BNVA) | payer MEDICARE, SELFPAY | PROVIDERS: PCP Nurse Practitioner Family; Referring Provider Nurse Practitioner Family | DX: Z47.89 Encounter for other orthopedic aftercare (principal); M65.341 Trigger finger, right ring finger ==

== ENCOUNTER 2024-02-19 14:07 | Outpatient (CLI) | payer MEDICARE, SELFPAY ==
--- NOTE | 2024-02-19 15:25 | DI.RAD_ITS ---
Exam(s) XR SHOULDER RT COMPLETE 2+V EXAM: XR SHOULDER RT COMPLETE 2+V CLINICAL HISTORY: right shoulder pain, M25.511,Aftercare s/p rt shoulder jt replacement,Z47.1. TECHNIQUE: 2D digital imaging was performed. Five views. COMPARISON: No exams were available for comparison FINDINGS: BONES: No acute fracture is present. No bony destructive lesion is seen. Metallic anchor related to prior biceps tendon surgery. Spurring at greater and lesser tuberosities. JOINTS: No dislocation present. Spurring at glenoid. Glenohumeral joint space is maintained. Spurr ing at AC joint. SOFT TISSUE: Normal. IMPRESSION: Postsurgical and degenerative changes. DATA REPOSITORY: RADIATION DOSE DELIVERED:
== END 2024-02-19 14:27 ==
LOC: DI 14:07
PROVIDERS: PCP Nurse Practitioner Family; Visit Provider Nurse Practitioner Family
DX: Z47.1 Aftercare following joint replacement surgery; Z96.611 Presence of right artificial shoulder joint
CPT/HCPCS: 73030

== ENCOUNTER 2024-04-10 03:34 | Outpatient (CLI) | payer MEDICARE, SELFPAY ==
[2024-04-10 08:28] LABS: Abs Immature Grans 0.02 10^3/uL (0.0-0.06); Absolute Basophil Count 0.04 10^3/uL (0.0-0.2); Absolute Lymphocyte Count 1.56 10^3/uL (1.2-3.4); Absolute Monocyte Count 0.48 10^3/uL (0.1-0.8); Absolute Neutrophil Count 4.51 10^3/uL (1.2-6.7); Basophils % 0.6 %; Eosinophils % 2.9 %; HCT 43.2 % (36.0-46.0); HGB 14.4 g/dL (11.2-15.7); Immature Grans % 0.3 %; Lymphocytes % 22.9 %; MCH 31.7 pg (27.0-33.0); MCHC 33.3 % (32.0-36.0); MCV 95 fL (80-95); MPV 9.8 fL (8.0-11.0); Neutrophils % 66.3 %; Platelet Count 214 10^3/uL (130-400); RBC 4.54 10^6/uL (3.93-5.22); RDW 12.2 % (11.7-14.6); RDW-SD 42.7 fL; WBC 6.81 10^3/uL (4.4-10.8)
[2024-04-10 09:54] LABS: Iron 105 ug/dL (50-170); Total Iron Binding Capacity 318 ug/dL (250-450); Transferrin Sat 33 % (15-50)
[2024-04-10 09:58] LABS: ALT 22 U/L (14-59); AST 21 U/L (15-37); Albumin 3.8 g/dL (3.4-5.0); Alkaline Phosphatase 81 U/L (46-116); Anion Gap 6.5 mmol/L (3-11); BUN 19 mg/dL (7-18); Bilirubin, Total 0.95 mg/dL (0.2-1.0); CO2 29.5 mmol/L (21.0-32.0); Calcium 9.4 mg/dL (8.5-10.1); Calculated LDL 115 mg/dL (<100); Chloride 108 mmol/L (98-107); Cholesterol 213 mg/dL (<200); Estimated GFR 57.66 (mL/min/1.73m2); Glucose 95 mg/dL (74-106); HDL Cholesterol 77 mg/dL (40-60); Magnesium 1.8 mg/dL (1.8-2.4); Sodium 144 mmol/L (136-145); Total Protein 7.2 g/dL (6.4-8.2); Triglyceride 106 mg/dL (<150); Vitamin B12 366 pg/mL (193-986); Vitamin D 25 Total 26.3 ng/mL (30-100)
[2024-04-10 10:03] LABS: Hemoglobin A1C 5.6 % (<5.7)
[2024-04-11 12:46] LABS: Lyme Ab w Rflx to Lyme Confirm Negative (Negative)
[2024-04-13 16:15] LABS: Anaplasma phagocytophilum Negative (Negative); B. miyamotoi PCR Negative (Negative); Babesia divergens/MO-1 Negative (Negative); Babesia duncani Negative (Negative); Babesia microti Negative (Negative); Ehrlichia chaffeensis Negative (Negative); Ehrlichia ewingii/canis Negative (Negative); Ehrlichia muris eauclairensis Negative (Negative)
== END 2024-04-10 03:35 | disposition home or self-care (01) ==
LOC: LBO 03:34
PROVIDERS: PCP Nurse Practitioner Family; Visit Provider Nurse Practitioner Family
DX: R42 Dizziness and giddiness; M79.10 Myalgia, unspecified site; R11.0 Nausea; R10.9 Unspecified abdominal pain; E55.9 Vitamin D deficiency, unspecified; R73.09 Other abnormal glucose; E78.5 Hyperlipidemia, unspecified
CPT/HCPCS: 36415; 80053; 80061; 82306; 82533; 87798; 82607; 83036; 83540; 83550; 83735; 84443; 85025; 86618

== ENCOUNTER 2024-04-29 01:26 | Outpatient (CLI) | payer MEDICARE, SELFPAY ==
--- NOTE | 2024-04-29 07:30 | DI.MRI_ITS ---
Exam(s) MR UPPER JOINT RT WO EXAM: MR UPPER JOINT RT WO CLINICAL HISTORY: chronic rt shoulder pain,m25.511 TECHNIQUE: Multiplanar multisequence MRI of the shoulder was performed. COMPARISON: MR MRI R UPPER JOINT WO CONT from 03/08/2013 CR XR SHOULDER RT COMPLETE 2+V from 02/19/2024 FINDINGS: Compared to the MRI scan of March 2013 there has been interval rotator cuff repair with fastener ch annels in the lateral humeral head. There is also a biceps tenodesis site noted in the proximal raul ral diaphysis. MARROW:There is no evidence of fracture, Hill-Sachs deformity, nor ominous osseous lesions. GLENOHUMERAL JOINT: There are mild-moderate degenerative changes in the glenohumeral joint. There is some articular cartilage loss and there is a small osteophyte on the inferior articular surface of t he humeral head evident there are no degenerative subarticular cysts in the osseous glenoid. No sign ificant joint effusion or loose intra-articular bodies evident. ROTATOR CUFF MECHANISM: AC JOINT/ACROMIUM: There is evidence of some surgery widening at the level the AC joint. There is on ly mild impingement at this level evident. No evidence of os acromial Supraspinatus: There is an area of significant attenuation of the rotator cuff tendon with fluid sign al below and above this level, this at the conjoined region of the supra spinatus/infraspinatus and c onsistent with an area of full-thickness tearing of the tendon at this level with AP measurement of 0 .7 cm and fluid signal evident both above and below the tendon into the subacromial space at this lev el. There appears to be thin strand of this tendon remaining at this level but this is essentially a full-thickness tear. There is no retraction of the musculotendinous junction. There is also some t endinitis signal in the more anterior aspect of the supraspinatus tendon but without a full-thickness nor partial-thickness tear at this level. Infraspinatus: As above. In addition, there is abnormal fluid signal at the musculotendinous junctio n articular side surface probably representing an element of partial thickness tearing at this level. This is approximately 1.5 cm posterior to the above described tear. Teres Minor: Intact. No evidence of tear nor muscle atrophy. Subscapularis/anterior cuff: Intact. No abnormal signal at the level of the multipennate insertional fibers. No significant tear nor atrophy. BICEPS TENDON: Intra-articular and intertubercular aspects not seen/resected during prior tenodesis p rocedure. LABRUM: No labral tear identified. No evidence of paralabral cyst. QUADRILATERAL SPACE: No evidence of mass in the region of the axillary nerve and dorsal circumflex hu meral vessels. Visualized triceps muscle at this level appears unremarkable. IMPRESSION: 1. Evidence of prior rotator cuff surgery and biceps tenodesis 2. There is an area of full-thickness tearing in the posterior supraspinatus tendon at the conjoined region with the infraspinatus. This is above the mid humeral head level, approximately 2.5 cm proxim al to the greater tuberosity foot pad insertion. There is a thin strand of remaining tendon in the 1 .5 cm tear gap. However, there is fluid in the subacromial space at this level, consistent with full -thickness tear. There is no retraction and no significant muscle atrophy. 3. There is no evidence of labral tear nor paralabral cyst. 4. Mild-moderate degenerative changes are evident in the glenohumeral joint. DATA REPOSITORY:
== END 2024-04-29 01:46 ==
LOC: DI 01:26
PROVIDERS: PCP Nurse Practitioner Family; Visit Provider Nurse Practitioner Family
DX: M75.121 Complete rotator cuff tear or rupture of right shoulder, not specified as traumatic (principal)
CPT/HCPCS: 73221

== ENCOUNTER → 2024-05-15 13:01 | Outpatient (BNVA) | payer MEDICARE, SELFPAY | PROVIDERS: PCP Nurse Practitioner Family; Referring Provider Nurse Practitioner Family; Visit Provider Student in an Organized Health Care Education/Training Program | DX: M75.101 Unspecified rotator cuff tear or rupture of right shoulder, not specified as traumatic (principal) | CPT/HCPCS: 99214 ==

== ENCOUNTER 2025-02-24 20:10 | Outpatient (CLI) | payer MEDICARE, SELFPAY ==
[2025-02-24 16:47] LABS: ALT 21 U/L (14-59); AST 21 U/L (15-37); Albumin 3.8 g/dL (3.4-5.0); Alkaline Phosphatase 81 U/L (46-116); Anion Gap 9.4 mmol/L (3-11); BUN 16 mg/dL (7-18); Bilirubin, Total 1.1 mg/dL (0.2-1.0); CO2 26.6 mmol/L (21.0-32.0); Calcium 9.6 mg/dL (8.5-10.1); Chloride 106 mmol/L (98-107); Estimated GFR 57.66 (mL/min/1.73m2); Glucose 137 mg/dL (74-106); Potassium 4.1 mmol/L (3.5-5.1); Sodium 142 mmol/L (136-145); Total Protein 7.0 g/dL (6.4-8.2)
[2025-02-25 16:38] LABS: Calculated LDL 120 mg/dL (<100); Cholesterol 208 mg/dL (<200); HDL Cholesterol 65 mg/dL (>or=50); Triglyceride 116 mg/dL (<150); Vitamin D 25 Total 28 ng/mL (30-100)
== END 2025-02-24 20:11 | disposition home or self-care (01) ==
LOC: LOS 20:10
PROVIDERS: PCP Nurse Practitioner Family; Visit Provider Nurse Practitioner Family
DX: E55.9 Vitamin D deficiency, unspecified (principal); M85.80 Other specified disorders of bone density and structure, unspecified site; K21.9 Gastro-esophageal reflux disease without esophagitis; G47.00 Insomnia, unspecified; E78.5 Hyperlipidemia, unspecified
CPT/HCPCS: 36415; 80053; 80061; 82306

== ENCOUNTER → 2025-04-03 12:52 | Outpatient (CLI) | payer MEDICARE, SELFPAY ==
--- NOTE | 2025-04-03 10:15 | DI.RAD_ITS ---
Exam(s) XR HIP LT COMPLETE AP PELVIS EXAM: XR HIP LT COMPLETE AP PELVIS CLINICAL HISTORY: left low back, left hip pain M25.552, M54.16. TECHNIQUE: 2D digital imaging was performed. COMPARISON: CR XR HIP LT COMPLETE AP PELVIS from 03/17/2023 FINDINGS: Two views Right hip prosthesis again noted. There are moderate degenerative changes in the left hip joint. Minimal further progression when compared to 2 years ago. No osseous lesions. Bone density normal. IMPRESSION: Further progression of osteoarthritic changes in the left hip when compared to images of March 2023 DATA REPOSITORY: RADIATION DOSE DELIVERED:
--- NOTE | 2025-04-03 10:17 | DI.RAD_ITS ---
Exam(s) XR LUMBAR SPINE COMPLETE EXAM: XR LUMBAR SPINE COMPLETE CLINICAL HISTORY: left low back pain, left hip pain M25.552, M54.16. TECHNIQUE: 2D digital imaging was performed. COMPARISON: CR XR LUMBAR SPINE COMPLETE from 03/17/2023 FINDINGS: Five views Mild scoliosis convex left is unchanged from 2 years ago. There is no evidence of fracture. The very mild degenerative anterolisthesis L4 upon L5 is again noted related to facet arthropathy. There is no disc space narrowing at this level nor at L5-S1 level. Mild disc space narrowing at L2-3 and L3-4 levels is unchanged. Also at L1-2 level., also unchanged. Bone density age-appropriate. No osseous lesions. Sacroiliac joints appear unremarkable. There is a right hip prosthesis again noted. IMPRESSION: Findings as above but without significant radiographic change when compared to images of 03/17/23 DATA REPOSITORY: RADIATION DOSE DELIVERED:
== END ==
LOC: DI 12:53
PROVIDERS: PCP Nurse Practitioner Family; Visit Provider Nurse Practitioner Family
DX: M25.552 Pain in left hip (principal); M54.16 Radiculopathy, lumbar region
CPT/HCPCS: 72110; 73502